=== PATIENT | female | born 1960 | race Caucasian/White ===

== ENCOUNTER 2017-12-06 08:17 | Day surgery (SDC) | payer OTHER ==
[~2017-12-06] VITALS: Ht 160 cm; Wt 124.0 kg
[~2017-12-06 08:17] MED LIST: ALBU90OI INH; AMOCLA875 PO; ASPI81EC PO; AZIT250 PO; Albuterol17 G1 INH; BIOTIN PLUS KE1 EACH PO; CARV6.25 PO; CEPH500 PO; CIPRO500 MG PO; CLON.5 PO; CLOP75 PO; CODGUAEL PO; CYCL10 PO; Cleocin HCl300 MG PO; Cyclobenzaprine5 MG PO; Cymbalta60 MG; DIAZ5 PO; DULO60 PO; Diflucan100 MG PO; Doxycycline Mon50 M1 PO; ESOM20 PO; Endocet 7.5-321 EACH PO; FLONASE ALLERG9.9 ML; FLUC150A PO; FLUC200 PO; FURO40 PO; GABA300 PO; GABA800 PO; GLIP5 PO; HYDACE5 PO; IBUP600 PO; INSR10I SC; INSUASPI SC; INSULANPEN SC; JARDIANCE25 MG; LISI20 PO; LORA10 PO; MERIBIN5 MG; MERIBIN5 MG PO; METO25ER PO; Mucinex600 MG PO; NICO14TP TOP; Naprosyn500 MG PO; Novolog100 UNIT/2; OMEP40CA12 PO; ONDA4ODT PO; OXYACE5T PO; OXYC10ER PO; OXYC1TAB11 PO; OXYMORPHONE HCL10 MG PO; PHENA100 PO; POTCHL10ER PO; PROM25 PO; Prednisone20 MG PO; Pseudoephedrine30 MG PO; Pyridium200 MG PO; ROSU10TA PO; SPACE CHAMBER1 EACH MC; SULTRIDS PO; Senna Laxative8.6 MG PO; Senna8.6 MG PO; Sulfamethoxazo1 EAC1 PO; TOPI25 PO; TOUJEO SOL300 UNIT/1 SQ; Tylenol325 MG PO; VANCO 2 GR2 GM/250 M IV; VITAMIN D2000 UNIT PO; VITAMIN D33000 UNIT PO; XARELTO15 MG PO; XARELTO20 MG PO; ZOLP5 PO; Zithromax250 MG PO; Zofran4 MG PO
[2017-12-06] MEDS ORDERED: PRED10 PO (09:00)
[2017-12-06] MEDS ORDERED: FAMO20 PO (09:01)
[2017-12-06] MEDS ORDERED: DIPH50 PO (09:02)
[2017-12-06] MEDS ORDERED: NAC600 MG PO (09:05)
[2017-12-06] MEDS ORDERED: METF500 PO (13:03)
== END 2017-12-06 14:30 | disposition home or self-care (01) ==
LOC: MHTC 08:17
PROC: 4A023N7 Measurement of Cardiac Sampling and Pressure, Left Heart, Percutaneous Approach (ICD-10-PCS; principal; 2017-12-06)
PROC: B211YZZ Fluoroscopy of Multiple Coronary Arteries using Other Contrast (ICD-10-PCS; principal; 2017-12-06)
PROC: 4A033BC Measurement of Arterial Pressure, Coronary, Percutaneous Approach (ICD-10-PCS; principal; 2017-12-06)
DX: I25.10 Atherosclerotic heart disease of native coronary artery without angina pectoris (principal); R94.39 Abnormal result of other cardiovascular function study; Z95.818 Presence of other cardiac implants and grafts; I10 Essential (primary) hypertension; E78.5 Hyperlipidemia, unspecified; E11.9 Type 2 diabetes mellitus without complications; Z87.891 Personal history of nicotine dependence
CPT/HCPCS: 82947; 93458; 93571; 99152; 99153; C1769; C1894; J1200; J1644; J1815; J2250; J3010; J3490; J7030; Q9967

== ENCOUNTER 2018-02-24 06:47 | Emergency (ER) | payer OTHER ==
[~2018-02-24] VITALS: Ht 160 cm; Wt 112.5 kg
[~2018-02-24 06:47] MED LIST changes: +DIPH50 PO; +FAMO20 PO; +METF500 PO; +NAC600 MG PO; +PRED10 PO
[2018-02-24] MEDS ORDERED: ZOSTRIX56.6 GM TOP (07:16)
[2018-02-24] MEDS ORDERED: Valtrex1000 MG PO (07:16)
== END 2018-02-24 07:35 | disposition home or self-care (01) ==
LOC: ER 06:47
DX: B02.9 Zoster without complications (principal); J45.909 Unspecified asthma, uncomplicated; E11.9 Type 2 diabetes mellitus without complications; I10 Essential (primary) hypertension; F32.9 Major depressive disorder, single episode, unspecified; I25.2 Old myocardial infarction; M54.9 Dorsalgia, unspecified; G89.29 Other chronic pain; Z95.5 Presence of coronary angioplasty implant and graft; Z98.890 Other specified postprocedural states; Z90.49 Acquired absence of other specified parts of digestive tract; Z90.710 Acquired absence of both cervix and uterus; Z87.891 Personal history of nicotine dependence

== ENCOUNTER 2018-03-05 13:08 | Emergency (ER) | payer OTHER ==
[~2018-03-05] VITALS: Ht 160 cm; Wt 113.4 kg
[~2018-03-05 13:08] MED LIST changes: +Valtrex1000 MG PO; +ZOSTRIX56.6 GM TOP
[2018-03-05] MEDS ORDERED: MUPIROCIN15 GM TOP (13:38)
== END 2018-03-05 13:51 | disposition home or self-care (01) ==
LOC: ER 13:08
DX: B02.9 Zoster without complications (principal); Z91.041 Radiographic dye allergy status; Z88.8 Allergy status to other drugs, medicaments and biological substances; Z91.018 Allergy to other foods; Z79.899 Other long term (current) drug therapy; Z79.4 Long term (current) use of insulin; Z79.52 Long term (current) use of systemic steroids; Z79.84 Long term (current) use of oral hypoglycemic drugs; E11.9 Type 2 diabetes mellitus without complications; I10 Essential (primary) hypertension; F32.9 Major depressive disorder, single episode, unspecified; I25.2 Old myocardial infarction; J45.909 Unspecified asthma, uncomplicated; F17.200 Nicotine dependence, unspecified, uncomplicated
CPT/HCPCS: 99282

== ENCOUNTER → 2018-05-09 | Outpatient (CLI) | payer OTHER ==
[~2018-05-09] MED LIST changes: +Abilify2 MG; +CEFD300 PO; +MUPIROCIN15 GM TOP; +Pyridium100 MG PO; +Ranitidine HCl150 M1 PO; +TRULICITY1.5 MG/0.5 SQ
== END | disposition home or self-care (01) ==
LOC: PLD 08:02 → LAB SHORT 08:02
DX: L30.8 Other specified dermatitis (principal)
CPT/HCPCS: 88305; 88313

== ENCOUNTER → 2018-05-15 | Outpatient (CLI) | payer OTHER ==
[2018-05-15 16:52] LABS: Appearance, Urine Hazy (Clear); Bilirubin, Urine Neg (Neg); Blood, Urine 4+ (Neg); Color, Urine Yellow (P-Yellow); Glucose Qualitative, Urine 4+ (Neg); Ketones, Urine Neg (Neg); Leukocyte Esterase, Urine 3+ (Neg); Nitrite, Urine Neg (Neg); Protein, Urine Neg (Neg); Urobilinogen, Urine NORM (Normal)
[2018-05-15 16:59] LABS: White Blood Cells, Urine TNTC /hpf (0-5)
[2018-05-15 17:01] LABS: Bacteria Few /hpf; Squamous Epithelial Cells Few /hpf (Few)
== END | disposition home or self-care (01) ==
LOC: LAB 16:22 → LAB SHORT 16:22
PROVIDERS: Internal Medicine Nephrology
DX: N39.0 Urinary tract infection, site not specified (principal)
CPT/HCPCS: 81001; 87077; 87086; 87186

== ENCOUNTER 2018-05-16 14:09 | Emergency (ER) | payer OTHER ==
[~2018-05-16] VITALS: Ht 160 cm; Wt 113.4 kg
[~2018-05-16 14:09] MED LIST changes: -Abilify2 MG; -CEFD300 PO; -Pyridium100 MG PO; -Ranitidine HCl150 M1 PO; -TRULICITY1.5 MG/0.5 SQ
[2018-05-16 14:58] LABS: Source, Urine Clean Catch
[2018-05-16 15:00] LABS: Appearance, Urine Hazy (Clear); Bilirubin, Urine Neg (Neg); Blood, Urine 4+ (Neg); Color, Urine Yellow (P-Yellow); Glucose Qualitative, Urine 4+ (Neg); Ketones, Urine Neg (Neg); Leukocyte Esterase, Urine 3+ (Neg); Nitrite, Urine Neg (Neg); Protein, Urine 1+ (Neg); Urobilinogen, Urine NORM (Normal)
[2018-05-16] MEDS ORDERED: TRULICITY1.5 MG/0.5 SQ (15:00)
[2018-05-16] MEDS ORDERED: Abilify2 MG (15:01)
[2018-05-16] MEDS ORDERED: Ranitidine HCl150 M1 PO (15:02)
[2018-05-16 15:39] LABS: White Blood Cells, Urine TNTC /hpf (0-5)
[2018-05-16 15:41] LABS: Bacteria Few /hpf; Red Blood Cells, Urine 25-50 /hpf (0-2); Squamous Epithelial Cells Few /hpf (Few)
[2018-05-16 15:50] LABS: BASOPHILS ABSOLUTE AUTO 0.08 K/mm3 (0.00-0.23); BASOPHILS PERCENT AUTO 1 % (0-2); EOSINOPHILS PERCENT AUTO 2 % (0-6); Hematocrit 41.7 % (33.0-51.0); IMMATURE GRAN ABSOLUTE AUTO 0.04 K/mm3 (0.00-0.10); IMMATURE GRAN PERCENT AUTO 1 % (0-1); LYMPHOCYTES ABSOLUTE AUTO 2.35 K/mm3 (0.84-5.20); LYMPHOCYTES PERCENT AUTO 28 % (21-46); MONOCYTES ABSOLUTE AUTO 0.58 K/mm3 (0.16-1.47); MONOCYTES PERCENT AUTO 7 % (4-13); Mean Corpuscular HGB 30.6 pg (26.0-34.0); Mean Corpuscular HGB Conc 33.6 g/dL (31.5-36.5); Mean Corpuscular Volume 91 fL (80-100); Mean Platelet Volume 10.4 fL (9.1-12.4); NEUTROPHILS ABSOLUTE AUTO 5.12 K/mm3 (1.96-9.15); NEUTROPHILS PERCENT AUTO 61 % (41-73); Platelet Count 310 K/mm3 (150-400); RDW Coefficient Variation 12.9 % (11.7-14.2); RDW Standard Deviation 42.6 fL (35.1-46.3); Red Blood Cell Count 4.58 M/mm3 (3.80-5.20); White Blood Cell Count 8.37 K/mm3 (4.00-11.30)
[2018-05-16 16:07] LABS: Anion Gap 10 mmol/L (6-16); Blood Urea Nitrogen 23 mg/dL (8-24); Bun/Creatinine Ratio 29.9 (12.0-20.0); CO2, Blood 24 mmol/L (21-32); Calcium, Blood 8.8 mg/dL (8.5-10.1); Chloride, Blood 103 mmol/L (98-108); Creatinine, Blood 0.77 mg/dL (0.40-1.00); Glomerular Filtration Rate >60 (60-); Glucose, Blood 152 mg/dL (70-99); Potassium, Blood 4.1 mmol/L (3.5-5.5); Sodium, Blood 137 mmol/L (136-145)
[2018-05-16] MEDS ORDERED: Pyridium100 MG PO (16:23)
[2018-05-16] MEDS ORDERED: CEFD300 PO (16:23)
== END 2018-05-16 16:52 | disposition home or self-care (01) ==
LOC: ER 14:09
PROVIDERS: Emergency Medicine
DX: N39.0 Urinary tract infection, site not specified (principal); E11.9 Type 2 diabetes mellitus without complications; I10 Essential (primary) hypertension; F32.9 Major depressive disorder, single episode, unspecified; J45.909 Unspecified asthma, uncomplicated; Z91.09 Other allergy status, other than to drugs and biological substances; Z91.041 Radiographic dye allergy status; Z91.048 Other nonmedicinal substance allergy status; Z88.1 Allergy status to other antibiotic agents; Z88.8 Allergy status to other drugs, medicaments and biological substances; Z91.018 Allergy to other foods; Z79.899 Other long term (current) drug therapy; Z79.4 Long term (current) use of insulin
CPT/HCPCS: 36415; 80048; 81001; 85025; 87077; 87086; 87186; 96374; 99283-25; J2405

== ENCOUNTER → 2018-06-26 | Outpatient (CLI) | payer OTHER ==
[~2018-06-26] MED LIST changes: +Abilify2 MG; +CEFD300 PO; +Pyridium100 MG PO; +Ranitidine HCl150 M1 PO; +TRULICITY1.5 MG/0.5 SQ
== END | disposition home or self-care (01) ==
LOC: LAB 16:17 → LAB SHORT 16:17
DX: L98.9 Disorder of the skin and subcutaneous tissue, unspecified (principal)
CPT/HCPCS: 87070; 87205

== ENCOUNTER 2019-03-02 19:16 | Emergency (ER) | payer OTHER ==
[~2019-03-02] VITALS: Ht 160 cm; Wt 115.7 kg
[2019-03-02 20:22] LABS: BASOPHILS ABSOLUTE AUTO 0.07 K/mm3 (0.00-0.23); BASOPHILS PERCENT AUTO 1 % (0-2); EOSINOPHILS ABSOLUTE AUTO 0.06 K/mm3 (0.00-0.68); EOSINOPHILS PERCENT AUTO 1 % (0-6); Hematocrit 46.6 % (33.0-51.0); Hemoglobin 15.5 g/dL (11.5-16.0); IMMATURE GRAN ABSOLUTE AUTO 0.03 K/mm3 (0.00-0.10); IMMATURE GRAN PERCENT AUTO 0 % (0-1); LYMPHOCYTES ABSOLUTE AUTO 1.51 K/mm3 (0.84-5.20); LYMPHOCYTES PERCENT AUTO 19 % (21-46); MONOCYTES PERCENT AUTO 6 % (4-13); Mean Corpuscular HGB 30.1 pg (26.0-34.0); Mean Corpuscular HGB Conc 33.3 g/dL (31.5-36.5); Mean Corpuscular Volume 91 fL (80-100); Mean Platelet Volume 10.6 fL (9.1-12.4); NEUTROPHILS ABSOLUTE AUTO 5.77 K/mm3 (1.96-9.15); NEUTROPHILS PERCENT AUTO 73 % (41-73); Platelet Count 339 K/mm3 (150-400); RDW Coefficient Variation 12.1 % (11.7-14.2); RDW Standard Deviation 40.3 fL (35.1-46.3); Red Blood Cell Count 5.15 M/mm3 (3.80-5.20); White Blood Cell Count 7.94 K/mm3 (4.00-11.30)
[2019-03-02 20:46] LABS: Alanine Aminotransfer (ALT/SGP 27 U/L (12-78); Albumin, Blood 3.8 g/dL (3.4-5.0); Albumin/Globulin Ratio 0.9 (0.8-1.8); Alk Phos 111 U/L (50-136); Anion Gap 8 mmol/L (6-16); Aspartate Aminotrans (AST/SGOT 17 U/L (12-37); Bilirubin, Total 0.6 mg/dL (0.1-1.0); Blood Urea Nitrogen 10 mg/dL (8-24); Bun/Creatinine Ratio 16.3 (12.0-20.0); CO2, Blood 25 mmol/L (21-32); Calcium, Blood 9.3 mg/dL (8.5-10.1); Chloride, Blood 106 mmol/L (98-108); Creatinine, Blood 0.61 mg/dL (0.40-1.00); Globulin, Blood 4.1 g/dL (2.2-4.0); Glomerular Filtration Rate >60 (60-); Glucose, Blood 192 mg/dL (70-99); Potassium, Blood 3.8 mmol/L (3.5-5.5); Sodium, Blood 139 mmol/L (136-145); Total Protein, Blood 7.9 g/dL (6.4-8.2)
[2019-03-02 20:48] LABS: Source, Urine Clean Catch
[2019-03-02 20:52] LABS: Bilirubin, Urine Neg (Neg); Blood, Urine Neg (Neg); Glucose Qualitative, Urine Neg (Neg); Ketones, Urine 1+ (Neg); Leukocyte Esterase, Urine 1+ (Neg); Nitrite, Urine Neg (Neg); Protein, Urine 2+ (Neg); Specific Gravity, Urine 1.025 (1.003-1.022); Urobilinogen, Urine NORM (Normal)
[2019-03-02 20:55] LABS: Appearance, Urine Clear (Clear); Color, Urine Yellow (P-Yellow)
[2019-03-02 20:58] LABS: Red Blood Cells, Urine 0-2 /hpf (0-2)
[2019-03-02 20:59] LABS: Bacteria Many /hpf; Mucus Mod (0-Heavy); Squamous Epithelial Cells Mod /hpf (Few)
[2019-03-02] MEDS ORDERED: Dicyclomine HCl20 MG PO (22:51)
[2019-03-02] MEDS ORDERED: ONDA4ODT MM (22:51)
== END 2019-03-02 23:20 | disposition home or self-care (01) ==
LOC: ER 19:16
PROVIDERS: Physician Assistant
DX: K52.9 Noninfective gastroenteritis and colitis, unspecified (principal); I10 Essential (primary) hypertension; E11.9 Type 2 diabetes mellitus without complications; I25.2 Old myocardial infarction; F32.9 Major depressive disorder, single episode, unspecified; J45.909 Unspecified asthma, uncomplicated; K21.9 Gastro-esophageal reflux disease without esophagitis; Z79.899 Other long term (current) drug therapy; Z79.4 Long term (current) use of insulin; Z91.041 Radiographic dye allergy status; Z88.1 Allergy status to other antibiotic agents; Z88.8 Allergy status to other drugs, medicaments and biological substances; Z91.018 Allergy to other foods
CPT/HCPCS: 36415; 80053; 81001; 82947; 83690; 85025; 87086; 96374; 99284-25; A9270-GY; J2405

== ENCOUNTER 2019-03-04 09:44 | Emergency (ER) | payer OTHER ==
[~2019-03-04] VITALS: Ht 160 cm; Wt 115.7 kg
[~2019-03-04 09:44] MED LIST changes: +Dicyclomine HCl20 MG PO; +ONDA4ODT MM
[2019-03-04 10:55] LABS: Source, Urine Clean Catch
[2019-03-04 11:04] LABS: Appearance, Urine Clear (Clear); Bilirubin, Urine Neg (Neg); Blood, Urine Neg (Neg); Color, Urine Yellow (P-Yellow); Glucose Qualitative, Urine Neg (Neg); Ketones, Urine 1+ (Neg); Leukocyte Esterase, Urine Neg (Neg); Nitrite, Urine Neg (Neg); Protein, Urine 1+ (Neg); Urobilinogen, Urine NORM (Normal)
[2019-03-04 11:39] LABS: Albumin, Blood 3.5 g/dL (3.4-5.0); Anion Gap 9 mmol/L (6-16); Blood Urea Nitrogen 11 mg/dL (8-24); CO2, Blood 22 mmol/L (21-32); Calcium, Blood 8.7 mg/dL (8.5-10.1); Chloride, Blood 106 mmol/L (98-108); Glucose, Blood 196 mg/dL (70-99); Potassium, Blood 4.1 mmol/L (3.5-5.5); Sodium, Blood 137 mmol/L (136-145)
[2019-03-04 11:50] LABS: Alanine Aminotransfer (ALT/SGP 28 U/L (12-78); Albumin/Globulin Ratio 0.9 (0.8-1.8); Alk Phos 98 U/L (50-136); Aspartate Aminotrans (AST/SGOT 31 U/L (12-37); Bilirubin, Total 0.5 mg/dL (0.1-1.0); Bun/Creatinine Ratio 14.8 (12.0-20.0); Creatinine, Blood 0.74 mg/dL (0.40-1.00); Globulin, Blood 3.8 g/dL (2.2-4.0); Glomerular Filtration Rate >60 (60-); Total Protein, Blood 7.3 g/dL (6.4-8.2)
[2019-03-04 12:20] LABS: BASOPHILS ABSOLUTE AUTO 0.08 K/mm3 (0.00-0.23); BASOPHILS PERCENT AUTO 1 % (0-2); EOSINOPHILS PERCENT AUTO 1 % (0-6); Hematocrit 43.4 % (33.0-51.0); Hemoglobin 14.1 g/dL (11.5-16.0); IMMATURE GRAN ABSOLUTE AUTO 0.03 K/mm3 (0.00-0.10); IMMATURE GRAN PERCENT AUTO 0 % (0-1); LYMPHOCYTES PERCENT AUTO 20 % (21-46); MONOCYTES ABSOLUTE AUTO 0.46 K/mm3 (0.16-1.47); MONOCYTES PERCENT AUTO 6 % (4-13); Mean Corpuscular HGB 29.9 pg (26.0-34.0); Mean Corpuscular HGB Conc 32.5 g/dL (31.5-36.5); Mean Corpuscular Volume 92 fL (80-100); Mean Platelet Volume 10.4 fL (9.1-12.4); NEUTROPHILS ABSOLUTE AUTO 5.44 K/mm3 (1.96-9.15); NEUTROPHILS PERCENT AUTO 72 % (41-73); Platelet Count 307 K/mm3 (150-400); RDW Standard Deviation 40.9 fL (35.1-46.3); Red Blood Cell Count 4.71 M/mm3 (3.80-5.20); White Blood Cell Count 7.61 K/mm3 (4.00-11.30)
[2019-03-04] MEDS ORDERED: METO10 PO (12:46)
== END 2019-03-04 13:05 | disposition home or self-care (01) ==
LOC: ER 09:44
PROVIDERS: Emergency Medicine
DX: K52.9 Noninfective gastroenteritis and colitis, unspecified (principal); E11.9 Type 2 diabetes mellitus without complications; Z91.041 Radiographic dye allergy status; Z88.8 Allergy status to other drugs, medicaments and biological substances; Z88.1 Allergy status to other antibiotic agents; Z91.018 Allergy to other foods; Z79.899 Other long term (current) drug therapy; Z79.4 Long term (current) use of insulin; J45.909 Unspecified asthma, uncomplicated; I10 Essential (primary) hypertension; I25.2 Old myocardial infarction; F32.9 Major depressive disorder, single episode, unspecified; K21.9 Gastro-esophageal reflux disease without esophagitis; F17.200 Nicotine dependence, unspecified, uncomplicated
CPT/HCPCS: 36415; 80053; 83690; 85025; 96361; 96374; 99284-25; J2765; J7030

== ENCOUNTER 2019-03-28 08:34 | Inpatient (IN) | payer OTHER ==
[~2019-03-28] VITALS: Ht 160 cm; Wt 111.2 kg
[~2019-03-28 08:34] MED LIST changes: -Abilify2 MG; +Abilify2 MG PO; +Carvedilol12.5 MG PO; +Crestor20 MG PO; +GABA600 PO; -JARDIANCE25 MG; +JARDIANCE25 MG PO; -LISI20 PO; -METF500 PO; +METF500C PO; +METO10 PO; -Novolog100 UNIT/2; +Novolog100 UNIT/2 SC; +Prinivil10 MG PO
[2019-03-28 09:23] LABS: BASOPHILS ABSOLUTE AUTO 0.08 K/mm3 (0.00-0.23); BASOPHILS PERCENT AUTO 0 % (0-2); EOSINOPHILS ABSOLUTE AUTO 0.09 K/mm3 (0.00-0.68); EOSINOPHILS PERCENT AUTO 0 % (0-6); Hematocrit 52.3 % (33.0-51.0); Hemoglobin 16.4 g/dL (11.5-16.0); IMMATURE GRAN ABSOLUTE AUTO 0.11 K/mm3 (0.00-0.10); IMMATURE GRAN PERCENT AUTO 1 % (0-1); LYMPHOCYTES ABSOLUTE AUTO 0.82 K/mm3 (0.84-5.20); LYMPHOCYTES PERCENT AUTO 4 % (21-46); MONOCYTES ABSOLUTE AUTO 1.14 K/mm3 (0.16-1.47); MONOCYTES PERCENT AUTO 5 % (4-13); Mean Corpuscular HGB 29.2 pg (26.0-34.0); Mean Corpuscular HGB Conc 31.4 g/dL (31.5-36.5); Mean Corpuscular Volume 93 fL (80-100); Mean Platelet Volume 10.9 fL (9.1-12.4); NEUTROPHILS ABSOLUTE AUTO 19.52 K/mm3 (1.96-9.15); NEUTROPHILS PERCENT AUTO 90 % (41-73); Platelet Count 334 K/mm3 (150-400); RDW Coefficient Variation 12.6 % (11.7-14.2); RDW Standard Deviation 43.2 fL (35.1-46.3); Red Blood Cell Count 5.61 M/mm3 (3.80-5.20); White Blood Cell Count 21.76 K/mm3 (4.00-11.30)
[2019-03-28 09:50] LABS: Alanine Aminotransfer (ALT/SGP 37 U/L (12-78); Albumin, Blood 3.8 g/dL (3.4-5.0); Albumin/Globulin Ratio 0.9 (0.8-1.8); Alk Phos 127 U/L (50-136); Anion Gap 8 mmol/L (6-16); Aspartate Aminotrans (AST/SGOT 30 U/L (12-37); Bilirubin, Total 0.3 mg/dL (0.1-1.0); Blood Urea Nitrogen 12 mg/dL (8-24); CO2, Blood 25 mmol/L (21-32); Calcium, Blood 9.3 mg/dL (8.5-10.1); Chloride, Blood 107 mmol/L (98-108); Globulin, Blood 4.1 g/dL (2.2-4.0); Glomerular Filtration Rate >60 (60-); Glucose, Blood 211 mg/dL (70-99); Potassium, Blood 4.4 mmol/L (3.5-5.5); Sodium, Blood 140 mmol/L (136-145); Total Protein, Blood 7.9 g/dL (6.4-8.2)
[2019-03-28 09:51] LABS: Troponin I 0.108 ng/mL (0.000-0.040)
[2019-03-28] MEDS ORDERED: Senna8.6 MG PO (12:14)
[2019-03-28] MEDS ORDERED: METTREX2.5 PO (12:19)
[2019-03-28] MEDS ORDERED: FOLI1 PO (12:20)
[2019-03-28] MEDS ORDERED: MORP30 PO (12:54)
[2019-03-28 14:04] LABS: Prothrombin Time Results 10.6 Sec (9.7-11.5)
--- NOTE | 2019-03-28 18:00 | NUR ---
SHIFT SUMMARY ASSUMED CARE OF PT AT APPROXIMATLY 1600. VS STABLE. TELEMETRY SHOWS NSR WITH A RATE IN THE 80'S. PT COMPLAINS OF PAIN IN CHEST AND BACK. PT MEDICATED PER EMAR. HEPARIN GTT INFUSING PER ORDERS. NS INFUSING PER ORDERS. PT TO BE NPO AT MIDNIGHT FOR POSSIBLE ANGIOGRAM IN THE AM PER CARDIOLOGY. PT ABLE TO TRANSFER TO [facility] NEEDED TO VOID. WOUNDS TO ABDOMEN HAVE BEEN PHOTOGRAPHED. PT REPORTS THAT SHE IS SEEING DR. MEEK FOR TREATMENT OF WOUNDS. WILL CONTINUE TO MONITOR AND REPORT TO ONCOMING RN. CALL LIGHT IN REACH.
--- NOTE | 2019-03-28 21:10 | NUR ---
ASSUMED CARE OF PATIENT AT APPROXIMATELY 1900 FROM MEENAKSHI Mcgowan RN. PATIENT ALERT AND ORIENTED X4; SBA TO BEDSIDE COMMODE. PATIENT HAS WEAKNESS, BLE EDEMA AND DYSPNEA WITH AMBULATION. PATIENT REPORTS PAIN IN HER RIGHT SHOULDER THAT SHE STATES FROM TORN ROTATOR CUFF, PAIN IN RIGHT KNEE AND PAIN IN BACK; PAIN LEVEL A 3 OR LESS IN EACH AREA; DENIES PAIN MEDICATION; WILL TRY K-PAD. PATIENT DENIES NUMBNESS, TINGLING, DIZZINESS AND NAUSEA. NSR W/ BBB ON TELE; OXYGEN SATURATION ABOVE 90% ON 2-3LPM VIA NC (REPORTED BASELINE FOR PATIENT). PATIENT ANXIOUS AT TIMES; REQUESTS XANAX LATER TONIGHT; PATIENT EXPRESSED CONCERN ABOUT WAKING UP ANXIOUS AT 2AM THAT SHE REPORTS HAS BEEN OCCURING FOR THE PAST FEW NIGHTS. SCDS IN PLACE; PIV S/L. PATIENT CURRENTLY RESTING IN BED; CALL LIGHT IN REACH; BED IN LOWEST POSISTION; BED ALARM ON; WILL CONTINUE TO MONITOR AND ASSESS UNTIL END OF SHIFT.
--- NOTE | 2019-03-28 21:15 | NUR ---
ASSUMED CARE OF PATIENT AT APPROXIMATELY 1905 FROM MEENAKSHI Mcgowan RN. PATIENT DROWSY AT SHIFT CHANGE; WAKES TO VERBAL STIMULUS; EASILY FALLS BACK ASLEEP. PATIENT MOANS AND STATES 5/10 PAIN IN HER BACK AND ABDOMEN; SHE REPORTS BACK PAIN FOR YEARS NOW BUT THE ABDOMEN PAIN IS NEW (SHARP AND STABBING); PATIENT REFUSES TYLENOL; REPORTS "I WILL FOR THE MORPHINE"; "I'M FINE FOR NOW"; REFUES ICE PACK, K-PAD OR WARM BLANKETS. PATIENT DENIES CP/PRESSURE, DIZZINESS OR NAUSEA. CHRONIC N/T TO EXTREMITIES. HEPARIN AND NS INFUSING PER ORDER. NPO AT MIDNIGHT. PATIENT CURRENTLY RESTING IN BED; CALL LIGHT IN REACH; BED IN LOWEST POSISTION; BED ALARM ON; WILL CONTINUE TO MONITOR AND ASSESS UNTIL END OF SHIFT.
[2019-03-29 06:28] LABS: BASOPHILS ABSOLUTE AUTO 0.04 K/mm3 (0.00-0.23); BASOPHILS PERCENT AUTO 0 % (0-2); EOSINOPHILS ABSOLUTE AUTO 0.14 K/mm3 (0.00-0.68); EOSINOPHILS PERCENT AUTO 2 % (0-6); Hematocrit 42.1 % (33.0-51.0); Hemoglobin 13.5 g/dL (11.5-16.0); IMMATURE GRAN ABSOLUTE AUTO 0.02 K/mm3 (0.00-0.10); IMMATURE GRAN PERCENT AUTO 0 % (0-1); LYMPHOCYTES ABSOLUTE AUTO 2.34 K/mm3 (0.84-5.20); LYMPHOCYTES PERCENT AUTO 26 % (21-46); MONOCYTES ABSOLUTE AUTO 0.57 K/mm3 (0.16-1.47); MONOCYTES PERCENT AUTO 6 % (4-13); Mean Corpuscular HGB 29.1 pg (26.0-34.0); Mean Corpuscular HGB Conc 32.1 g/dL (31.5-36.5); Mean Corpuscular Volume 91 fL (80-100); Mean Platelet Volume 10.9 fL (9.1-12.4); NEUTROPHILS ABSOLUTE AUTO 6.06 K/mm3 (1.96-9.15); NEUTROPHILS PERCENT AUTO 66 % (41-73); Platelet Count 308 K/mm3 (150-400); RDW Coefficient Variation 12.7 % (11.7-14.2); RDW Standard Deviation 41.5 fL (35.1-46.3); Red Blood Cell Count 4.64 M/mm3 (3.80-5.20); White Blood Cell Count 9.17 K/mm3 (4.00-11.30)
[2019-03-29 06:58] LABS: Alanine Aminotransfer (ALT/SGP 28 U/L (12-78); Albumin, Blood 2.8 g/dL (3.4-5.0); Albumin/Globulin Ratio 0.8 (0.8-1.8); Alk Phos 81 U/L (50-136); Anion Gap 5 mmol/L (6-16); Aspartate Aminotrans (AST/SGOT 45 U/L (12-37); Bilirubin, Total 0.3 mg/dL (0.1-1.0); Blood Urea Nitrogen 9 mg/dL (8-24); Bun/Creatinine Ratio 13.1 (12.0-20.0); CO2, Blood 27 mmol/L (21-32); Calcium, Blood 8.2 mg/dL (8.5-10.1); Chloride, Blood 110 mmol/L (98-108); Creatinine, Blood 0.69 mg/dL (0.40-1.00); Globulin, Blood 3.4 g/dL (2.2-4.0); Glomerular Filtration Rate >60 (60-); Glucose, Blood 96 mg/dL (70-99); Magnesium, Blood 2.1 mg/dL (1.6-2.4); Sodium, Blood 142 mmol/L (136-145); Total Protein, Blood 6.2 g/dL (6.4-8.2)
[2019-03-29 13:56] LABS: Source, Urine Voided
--- NOTE | 2019-03-29 14:01 | NUR ---
PT TAKEN TO [facility] FOR [facility]EDURE.
[2019-03-29 14:19] LABS: Bilirubin, Urine Neg (Neg); Blood, Urine Neg (Neg); Glucose Qualitative, Urine Neg (Neg); Ketones, Urine Neg (Neg); Leukocyte Esterase, Urine Neg (Neg); Nitrite, Urine Neg (Neg); Protein, Urine Neg (Neg); Urobilinogen, Urine NORM (Normal)
[2019-03-29 14:27] LABS: Appearance, Urine Clear (Clear); Color, Urine Yellow (P-Yellow)
--- NOTE | 2019-03-29 15:53 | NUR ---
PT RETURNED FROM [facility]. VS STABLE. TR BAND IN PLACE WITH 11CC OF AIR. NO SIGNS OF BLEEDING, HEMATOMA FORMATION, OR BRUISING. PT DENIES ANY CHEST PAIN. PT EDUCATED ON ARM RESTRICITONS. WILL CONTINUE TO MONITOR CLOSELY.
--- NOTE | 2019-03-29 19:00 | NUR ---
DAY SHIFT SUMMARY PT ALERT AND ORIENTED. VS STABLE. O2 SATS REMAIN ABOVE 90% ON RA. RIGHT RADIAL SITE HAS TR BAND IN PLACE. 2CC OF AIR REMOVED AT THIS TIME. NO SIGNS OF BLEEDING, HEMATOMA FORMATION, OR BRUISING. PT DENIES ANY CHEST PAIN THIS SHIFT. PT TOLERATING PO INTAKE AT THIS TIME. PT COMPLAINS OF CHRONIC BACK PAIN THROUGHOUT SHIFT. PT ABLE TO TRANSFER TO BS NEEDED TO VOID. WILL CONTINUE TO MONITOR. CALL LIGHT IN REACH.
--- NOTE | 2019-03-30 00:15 | NUR ---
RECEIVED REPORT FROM MEENAKSHI PRASAD AND ASSUMED PT CARE. PT IS RESTING IN BED WITH EYES CLOSED, APPEARS RELAXED AND COMFORTABLE. NO ACUTE CONCERNS, WILL CONTINUE TO MONITOR AND CONTINUE PLAN OF CARE.
[2019-03-30 04:00] LABS: BASOPHILS ABSOLUTE AUTO 0.05 K/mm3 (0.00-0.23); BASOPHILS PERCENT AUTO 1 % (0-2); EOSINOPHILS ABSOLUTE AUTO 0.13 K/mm3 (0.00-0.68); EOSINOPHILS PERCENT AUTO 1 % (0-6); Hematocrit 39.5 % (33.0-51.0); Hemoglobin 12.3 g/dL (11.5-16.0); IMMATURE GRAN ABSOLUTE AUTO 0.04 K/mm3 (0.00-0.10); IMMATURE GRAN PERCENT AUTO 0 % (0-1); LYMPHOCYTES ABSOLUTE AUTO 3.49 K/mm3 (0.84-5.20); LYMPHOCYTES PERCENT AUTO 32 % (21-46); MONOCYTES ABSOLUTE AUTO 0.82 K/mm3 (0.16-1.47); MONOCYTES PERCENT AUTO 8 % (4-13); Mean Corpuscular HGB 28.6 pg (26.0-34.0); Mean Corpuscular HGB Conc 31.1 g/dL (31.5-36.5); Mean Corpuscular Volume 92 fL (80-100); Mean Platelet Volume 10.7 fL (9.1-12.4); NEUTROPHILS ABSOLUTE AUTO 6.44 K/mm3 (1.96-9.15); NEUTROPHILS PERCENT AUTO 59 % (41-73); Platelet Count 292 K/mm3 (150-400); RDW Coefficient Variation 12.7 % (11.7-14.2); RDW Standard Deviation 42.3 fL (35.1-46.3); White Blood Cell Count 10.97 K/mm3 (4.00-11.30)
[2019-03-30 04:36] LABS: Alanine Aminotransfer (ALT/SGP 25 U/L (12-78); Albumin, Blood 2.6 g/dL (3.4-5.0); Albumin/Globulin Ratio 0.8 (0.8-1.8); Alk Phos 83 U/L (50-136); Anion Gap 5 mmol/L (6-16); Aspartate Aminotrans (AST/SGOT 30 U/L (12-37); Bilirubin, Total 0.3 mg/dL (0.1-1.0); Blood Urea Nitrogen 12 mg/dL (8-24); Bun/Creatinine Ratio 16.6 (12.0-20.0); CO2, Blood 26 mmol/L (21-32); Calcium, Blood 8.2 mg/dL (8.5-10.1); Chloride, Blood 111 mmol/L (98-108); Creatinine, Blood 0.73 mg/dL (0.40-1.00); Globulin, Blood 3.3 g/dL (2.2-4.0); Glomerular Filtration Rate >60 (60-); Glucose, Blood 153 mg/dL (70-99); Potassium, Blood 3.7 mmol/L (3.5-5.5); Sodium, Blood 142 mmol/L (136-145); Total Protein, Blood 5.9 g/dL (6.4-8.2)
--- NOTE | 2019-03-30 07:45 | NUR ---
PT HAS COMPLAINED OF CHRONIC BACK PAIN DURING SHIFT, SEE EMAR FOR MED ADMINISTRATION. PT STATES "THE PAIN MEDICINE HELPS FOR A LITTLE WHILE BUT THEN MY PAIN GOES BACK UP TO AN 8". DISCUSSED DURING BEDSIDE REPORT WITH SILVIA RN THAT THE PLAN FOR TODAY IS EXPECTED TO BE DISCHARGE WHERE SHE CAN RESUME HER HOME MEDICATIONS. HOWEVER, SHOULD THE MD DETERMINE TO DELAY DISCHARGE, THE QUESTION OF RESTARTING HOME PAIN MEDS WOULD BE READDRESSED WITH THE MD TODAY. PT IS FREQUENTLY RESTING WITH EYES CLOSED AND IN NO OBVIOUS DISTRESS UNTIL AWAKENED FOR VITAL SIGNS OR MEDICATION ADMINISTRATION. TR SITE TO R WRIST IS STABLE, TEGADERM IN PLACE WITH NO SIGN OF BLLEDING OR HEMATOMA. ARMBOARD IN PLACE AND PT HAS BEEN COMPLIANT WITH ACTIVITY RESTRICTIONS. PLAN FOR CONTINUED MONITORING WITH POSSIBLE DISCHARGE HOME TODAY.
--- NOTE | 2019-03-30 08:09 | NUR ---
NURSING PCU DAYSHIFT: Assumed care of pt at approx 0700. A/O, pleasant, cooperative w/care. C/O 05/11 chronic back pain, treating w/meds as ordered and repositioning. Skin is fairly intact though b/l abd wounds noted (photos in chart), R radial site r/t angiogram, clear tegaderm in place, no bleed or hematoma noted. C/O chronic neuropathy of all ext's, ambulates independently and w/o difficulty. Tele in place, NSR, no c/o CP/pressure, SBP 130's prior to a.m. meds, no noted edema. L/S failry cta t/o, O2 sat upper 90's on RA, denies dyspnea, occ moist/productive cough. Abd SNT, BT+, voiding w/o difficulty. PIV x2, s/l. No s/s of acute distress at this time. Pt requests home pain med regimen and is anticipating possible discharge home. Awaiting rounding from PMD and roll slicing machine tender, will discuss poss need for daily antiplatelet medication. Pt denies any current needs or questions regarding plan of care, call light in reach, cont to monitor for any changes.
[2019-03-30] MEDS ORDERED: INSULANPEN SC (11:53)
[2019-03-30] MEDS ORDERED: Lipitor80 MG PO (11:54)
[2019-03-30] MEDS ORDERED: ASPI81CH PO (11:55)
[2019-03-30] MEDS ORDERED: CARV3.125 PO (11:56)
[2019-03-30] MEDS ORDERED: TOUJEO MAX300 UNIT/1 SC (12:29)
[2019-03-30] MEDS ORDERED: TOPI50 PO (12:31)
== END 2019-03-30 13:02 | disposition home or self-care (01) | DRG 248 ==
LOC: ER 08:34 → ERHOLD 12:44 → PCU 12:44
PROVIDERS: Emergency Medicine; ADMIT Internal Medicine
PROC: 02703DZ Dilation of Coronary Artery, One Artery with Intraluminal Device, Percutaneous Approach (ICD-10-PCS; principal; 2019-03-29)
PROC: B2111ZZ Fluoroscopy of Multiple Coronary Arteries using Low Osmolar Contrast (ICD-10-PCS; 2019-03-29)
DX: T82.855A Stenosis of coronary artery stent, initial encounter (principal); I21.4 Non-ST elevation (NSTEMI) myocardial infarction; K85.90 Acute pancreatitis without necrosis or infection, unspecified; Z68.42 Body mass index [BMI] 45.0-49.9, adult; I25.10 Atherosclerotic heart disease of native coronary artery without angina pectoris; Z95.5 Presence of coronary angioplasty implant and graft; E78.5 Hyperlipidemia, unspecified; K21.9 Gastro-esophageal reflux disease without esophagitis; G89.29 Other chronic pain; M54.9 Dorsalgia, unspecified; E66.01 Morbid (severe) obesity due to excess calories; Z79.84 Long term (current) use of oral hypoglycemic drugs; D72.829 Elevated white blood cell count, unspecified; F17.210 Nicotine dependence, cigarettes, uncomplicated
CPT/HCPCS: 36415; 71045; 80053; 81003; 82947; 83036; 83690; 83735; 83880; 84484; 85025; 85347; 85610; 85730; 87077; 87081; 92928; 92978; 93005; 93010; 93306; 93454; 96361; 96374; 96375; 96376; 99152; 99153; 99285-25; A9270; C1725; C1753; C1769; C1876; C1887; C1894; J1170; J1200; J1644; J1720; J2250; J2270; J2405; J3010; J3490; J7030; Q9967

== ENCOUNTER → 2019-04-10 | Outpatient (CLI) | payer OTHER ==
[~2019-04-10] MED LIST changes: +ASPI81CH PO; +CARV3.125 PO; +FOLI1 PO; +Lipitor80 MG PO; +METTREX2.5 PO; +MORP30 PO; +TOPI50 PO; +TOUJEO MAX300 UNIT/1 SC; +Veetids 500500 MG PO
== END | disposition home or self-care (01) ==
LOC: LAB SHORT 14:24 → LAB 14:24
DX: R35.0 Frequency of micturition (principal)
CPT/HCPCS: 87077; 87086; 87186

== ENCOUNTER 2019-07-03 10:03 | Emergency (ER) | payer OTHER ==
[~2019-07-03] VITALS: Ht 160 cm; Wt 239.0 kg
[~2019-07-03 10:03] MED LIST changes: -Veetids 500500 MG PO
[2019-07-03] MEDS ORDERED: ONDA4ODT MM (11:32)
[2019-07-03] MEDS ORDERED: Veetids 500500 MG PO (11:32)
[2019-07-03] MEDS ORDERED: FLUC150A PO (11:39)
== END 2019-07-03 11:44 | disposition home or self-care (01) ==
LOC: ER 10:03
DX: J02.9 Acute pharyngitis, unspecified (principal); Z91.041 Radiographic dye allergy status; Z88.8 Allergy status to other drugs, medicaments and biological substances; Z88.1 Allergy status to other antibiotic agents; Z91.018 Allergy to other foods; Z79.899 Other long term (current) drug therapy; Z79.4 Long term (current) use of insulin; Z79.82 Long term (current) use of aspirin; E11.9 Type 2 diabetes mellitus without complications; I10 Essential (primary) hypertension; I25.2 Old myocardial infarction; F32.9 Major depressive disorder, single episode, unspecified; K21.9 Gastro-esophageal reflux disease without esophagitis; F17.200 Nicotine dependence, unspecified, uncomplicated
CPT/HCPCS: 87081; 87147; 87430; 99284; J1100

== ENCOUNTER 2020-03-24 17:04 | Emergency (ER) | payer OTHER ==
[~2020-03-24] VITALS: Ht 160 cm; Wt 108.4 kg
[~2020-03-24 17:04] MED LIST changes: +BLOOD THINNER; +CYMBALTA; +Veetids 500500 MG PO
== END 2020-03-24 18:56 | disposition home or self-care (01) ==
LOC: ER 17:04
DX: S91.331A Puncture wound without foreign body, right foot, initial encounter (principal); Z88.1 Allergy status to other antibiotic agents; Z91.018 Allergy to other foods; Z88.8 Allergy status to other drugs, medicaments and biological substances; Z91.048 Other nonmedicinal substance allergy status; Z91.09 Other allergy status, other than to drugs and biological substances; Z79.899 Other long term (current) drug therapy; Z79.4 Long term (current) use of insulin; Z79.82 Long term (current) use of aspirin; Z79.2 Long term (current) use of antibiotics; E11.40 Type 2 diabetes mellitus with diabetic neuropathy, unspecified; K21.9 Gastro-esophageal reflux disease without esophagitis; I25.10 Atherosclerotic heart disease of native coronary artery without angina pectoris; E78.5 Hyperlipidemia, unspecified; F17.200 Nicotine dependence, unspecified, uncomplicated; X58.XXXA Exposure to other specified factors, initial encounter
CPT/HCPCS: 10120; 73630; 99283-25

== ENCOUNTER 2020-05-05 18:35 | Inpatient (IN) | payer OTHER ==
[~2020-05-05] VITALS: Ht 157.5 cm; Wt 107.8 kg
[~2020-05-05 18:35] MED LIST changes: +ALLO100 PO; +AMLODIPINE BES2.5 MG PO; -ASPI81CH PO; +ATOR80 PO; +Aspir 8181 MG PO; -CARV3.125 PO; +CARVEDILOL12.5 MG PO; -CYMBALTA; +Cymbalta30 MG PO; +DOXYCYCLINE HY100 M1 PO; +FURO20 PO; +HYDHCL25 PO; +LINZESS145 MCG PO; +LISI20 PO; -Lipitor80 MG PO; +Loratadine10 MG PO; +MORPHINE SULFAT15 M1 PO; +NOVOLOG100 UNIT/2 SC; +OXYB5 PO; +PANT20 PO; +POTA10T PO; +PRASUGREL HCL10 MG PO; -TOUJEO MAX300 UNIT/1 SC; +TOUJEO MAX300 UNIT/2 SC; +TRAZ50 PO; +TRULICITY1.5 MG/0.1 SC; -TRULICITY1.5 MG/0.5 SQ
[2020-05-05 19:20] LABS: PCO2 Arterial 43.9 mmHg (35-45); PO2 Arterial 54.8 mmHg (80-100); pH Blood Arterial 7.23 (7.35-7.45)
[2020-05-05 19:26] LABS: Source, Urine Clean Catch
[2020-05-05 19:28] LABS: BASOPHILS ABSOLUTE AUTO 0.07 K/mm3 (0.00-0.23); BASOPHILS PERCENT AUTO 1 % (0-2); EOSINOPHILS ABSOLUTE AUTO 0.28 K/mm3 (0.00-0.68); EOSINOPHILS PERCENT AUTO 3 % (0-6); Hematocrit 40.3 % (33.0-51.0); Hemoglobin 12.4 g/dL (11.5-16.0); IMMATURE GRAN ABSOLUTE AUTO 0.02 K/mm3 (0.00-0.10); IMMATURE GRAN PERCENT AUTO 0 % (0-1); LYMPHOCYTES ABSOLUTE AUTO 1.67 K/mm3 (0.84-5.20); LYMPHOCYTES PERCENT AUTO 20 % (21-46); MONOCYTES ABSOLUTE AUTO 0.67 K/mm3 (0.16-1.47); MONOCYTES PERCENT AUTO 8 % (4-13); Mean Corpuscular HGB 27.9 pg (26.0-34.0); Mean Corpuscular HGB Conc 30.8 g/dL (31.5-36.5); Mean Corpuscular Volume 91 fL (80-100); Mean Platelet Volume 11.6 fL (9.1-12.4); NEUTROPHILS ABSOLUTE AUTO 5.79 K/mm3 (1.96-9.15); NEUTROPHILS PERCENT AUTO 68 % (41-73); Platelet Count 334 K/mm3 (150-400); RDW Coefficient Variation 13.2 % (11.7-14.2); RDW Standard Deviation 43.7 fL (35.1-46.3); Red Blood Cell Count 4.45 M/mm3 (3.80-5.20)
[2020-05-05 19:32] LABS: Blood, Urine 1+ (Neg); Glucose Qualitative, Urine Neg (Neg); Ketones, Urine 1+ (Neg); Leukocyte Esterase, Urine 1+ (Neg); Nitrite, Urine Neg (Neg); Protein, Urine 1+ (Neg); Urobilinogen, Urine NORM (Normal)
[2020-05-05 19:42] LABS: Albumin/Globulin Ratio 0.8 (0.8-1.8); Bilirubin, Total 0.5 mg/dL (0.1-1.0); Bun/Creatinine Ratio 12.7 (12.0-20.0); Calcium, Blood 8.3 mg/dL (8.5-10.1); Creatinine, Blood 4.58 mg/dL (0.40-1.00); Globulin, Blood 3.8 g/dL (2.2-4.0); Potassium, Blood 5.4 mmol/L (3.5-5.5); Total Protein, Blood 6.8 g/dL (6.4-8.2)
[2020-05-05 19:46] LABS: U Amphetamine Screen Not Detected; U Barbituate Screen Not Detected; U Benzodiazapine Screen Not Detected; U Buprenorphine Screen Not Detected; U Cannabinoids Screen Not Detected; U Cocaine Screen Not Detected; U Methadone Screen Not Detected; U Methamphetamine Screen Not Detected; U Opiates Screen DETECTED; U Oxycodone Screen Not Detected; U Phencyclidine Screen Not Detected; U Propoxyphene Screen Not Detected
[2020-05-05 19:51] LABS: Appearance, Urine Clear (Clear); Bilirubin, Urine 1+ (Neg); Color, Urine Yellow (P-Yellow)
[2020-05-05 19:55] LABS: Amorphous Light (0-Heavy); Bacteria Mod /hpf; Calcium Oxalate Crystals Few /hpf; Red Blood Cells, Urine 0-2 /hpf (0-2); Squamous Epithelial Cells Few /hpf (Few); Transitional Epithelial Cells Few /hpf (0-Rare)
--- NOTE | 2020-05-06 00:35 | NUR ---
ARRIVAL PATIENT ARRIVED TO ICU 1 VIA GURNEY FROM ED, AWAKENS TO VERBAL STIMULI, ANSWERING SIMPLE QUESTIONS FALLING BACK TO SLEEP MID SENTENCE. PATIENT TRANSFERRED TO BED USING SLIDER SHEET AND PLACED ON ICU MONITORS, PATIENT ASSISTING WITH REPOSITIONS IN BED, STARTLES EASILY. MAURICIO-SYNEPHRINE 100 MCG/MIN INFUSING TO LEFT AC. AND NS AT 250/HR INFUSING TO RIGHT SHOULDER. LUNG SOUNDS DECREASED BASES, ON 2L/NC. PLAN TO TITRATE MAURICIO-SYNEPHRINE DOWN. RT NOTIFIED OF CPAP ORDER.
[2020-05-06 03:52] LABS: BASOPHILS ABSOLUTE AUTO 0.05 K/mm3 (0.00-0.23); BASOPHILS PERCENT AUTO 1 % (0-2); EOSINOPHILS ABSOLUTE AUTO 0.17 K/mm3 (0.00-0.68); EOSINOPHILS PERCENT AUTO 3 % (0-6); Hematocrit 38.5 % (33.0-51.0); Hemoglobin 11.4 g/dL (11.5-16.0); IMMATURE GRAN ABSOLUTE AUTO 0.01 K/mm3 (0.00-0.10); IMMATURE GRAN PERCENT AUTO 0 % (0-1); LYMPHOCYTES ABSOLUTE AUTO 2.03 K/mm3 (0.84-5.20); LYMPHOCYTES PERCENT AUTO 33 % (21-46); MONOCYTES ABSOLUTE AUTO 0.57 K/mm3 (0.16-1.47); MONOCYTES PERCENT AUTO 9 % (4-13); Mean Corpuscular HGB 27.5 pg (26.0-34.0); Mean Corpuscular HGB Conc 29.6 g/dL (31.5-36.5); Mean Corpuscular Volume 93 fL (80-100); Mean Platelet Volume 11.4 fL (9.1-12.4); NEUTROPHILS PERCENT AUTO 55 % (41-73); Platelet Count 316 K/mm3 (150-400); RDW Coefficient Variation 13.2 % (11.7-14.2); RDW Standard Deviation 44.9 fL (35.1-46.3); Red Blood Cell Count 4.14 M/mm3 (3.80-5.20); White Blood Cell Count 6.23 K/mm3 (4.00-11.30)
[2020-05-06 04:15] LABS: Albumin, Blood 2.6 g/dL (3.4-5.0); Anion Gap 3 mmol/L (6-16); Blood Urea Nitrogen 51 mg/dL (8-24); Bun/Creatinine Ratio 15.5 (12.0-20.0); CO2, Blood 23 mmol/L (21-32); Calcium, Blood 7.3 mg/dL (8.5-10.1); Chloride, Blood 116 mmol/L (98-108); Creatinine, Blood 3.29 mg/dL (0.40-1.00); Glomerular Filtration Rate 15 (60-); Glucose, Blood 81 mg/dL (70-99); Phosphorus, Blood 6.2 mg/dL (2.5-4.9); Potassium, Blood 5.5 mmol/L (3.5-5.5); Sodium, Blood 142 mmol/L (136-145)
--- NOTE | 2020-05-06 04:28 | NUR ---
DOCTOR DARA NOTIFIED OF CONTINUED HYPOTENSION AND UNABLE TO DC MAURICIO-SYNEPHRINE, AND HAVING NEED FOR LINE IF CONTINUING TO NEED PRESSORS. PLAN TO CHANGE TO LEVOPHED AND PLACEMENT OF CENTRAL LINE.
--- NOTE | 2020-05-06 05:30 | NUR ---
DOCTOR DARA IN TO SEE PATIENT AND PLACE CENTRAL LINE. NARCAN 0.2MG GIVEN, PATIENT BECAME VERY PAINFUL AND UNABLE TO STAY STILL FOR CENTRAL LINE PLACEMENT. FENTANYL 50MCG GIVEN X2 TO GET PAIN BACK IN CONTROL. HYPOTENSION RETURNS, CHANGED TO LEVOPHED FROM MAURICIO-SYNEPHRINE FOR BP SUPPORT. CENTRAL LINE IN GOOD POSITION PER DOCTOR DIAMOND. PATIENT SLIGHTLY FORGETFUL, SURPRISED THAT SHE WAS IN THE HOSPITAL, REORIENTATION EASILY. PATIENT AWAKE AND ATTEMPTING TO CALL HER MOM ON THE TELEPHONE.
--- NOTE | 2020-05-06 06:41 | NUR ---
SUMMARY PATIENT RESTING QUIETLY VERBALIZED GOOD PAIN CONTROL. BIOX DOWN TO 89% ON RA WHILE SLEEPING OXYGEN 2L/NC REPLACED. CENTRAL LINE PLACED THIS MORNING, LEVOPHED INFUSING AT 2MCG. NS CONTINUES AT 200 CC/HR. COURTNEY DRAINING CLEAR YELLOW URINE.
--- NOTE | 2020-05-06 07:38 | NUR ---
[place] of Care: Care assumed at 0700hr. Patient sleeping, but easily roused to verbal stimuli. Alert and oriented to self, place, and date, but confused to event that lead to hospital stay. Also appears slightly confused i.e. stated her full name several times when asked her date. Calm and cooperative with staff. C/o pain (chronic) to back and knee's, but well controlled at this time, not requiring intervention or prn pain medications. Central line to rt IJ patent and intact. Levophed infusing at 2mcg/min, BP stable. Laird cath patent and intact, draining light yellow clear urine. Will complete medication rec early this shift. Call light in reach, instructed to not get out of bed without assistance. Will continue to monitor.
[2020-05-06 08:12] LABS: Base Excess Venous -10.2 mmol/L; Bicarbonate Venous 16.4 mmol/L (24.0-30.0)
[2020-05-06 15:40] LABS: Base Excess Venous -8.3 mmol/L; Bicarbonate Venous 17.7 mmol/L (24.0-30.0); PCO2 Venous 49.5 mmHg (38-42); PO2 Venous 64.1 mmHg (38-42); pH Blood Venous 7.21 (7.34-7.37)
[2020-05-06 15:59] LABS: Albumin, Blood 2.4 g/dL (3.4-5.0); Anion Gap 4 mmol/L (6-16); Blood Urea Nitrogen 36 mg/dL (8-24); Bun/Creatinine Ratio 22.2 (12.0-20.0); CO2, Blood 21 mmol/L (21-32); Calcium, Blood 7.7 mg/dL (8.5-10.1); Chloride, Blood 119 mmol/L (98-108); Creatinine, Blood 1.62 mg/dL (0.40-1.00); Glomerular Filtration Rate 35 (60-); Glucose, Blood 87 mg/dL (70-99); Potassium, Blood 5.3 mmol/L (3.5-5.5); Sodium, Blood 144 mmol/L (136-145)
--- NOTE | 2020-05-06 17:42 | NUR ---
Initial spiritual care note: Kathy appeared tired and was slow to respond. She was often repetative and would answer questions several topics later in conversation. She admits being fearful and reports chronic pain. She became tearful when talking about her frustration with adequate pain management. Kathy responded well to me and appeared more settled and calm by end of visit. She is Baptism but not active. She was appreciaitve of prayer and will benefit from continued spiritual support. I will continue to see her as case-load permits.
--- NOTE | 2020-05-06 18:29 | NUR ---
Shift Summary: No significant changes throughout shift. Patient slept for majority of shift when not stimulated by staff. Continues to appears slightly confused, but oriented to self, place, and date. Morning VBG results showed pH of 7.20, with slghtly elevated CO2. Received order at that time per Dr. Paz to place patient on BiPAP. Heylea RT set patient up on M-series BiPAP at 10/5 with 3L bleed in. VBG at 1500hr, showed slightly improvement in pH to 7.21, but a further increase in CO2. No change in neuro status noted at that time, but Heylea increased patient's BiPAP pressures to 14/6. Call then placed to Dr. Paz to report lab value and update in change in BiPAP pressures. No new orders received at that time. Unable to titrate levophed off this shift, 1-2mcg min required to keep MAP's in the 60's. Patient becoming more alert this evening, able to stay awake to eat dinner, 100%. Now back to sleeping and placed back on BiPAP mask. Central line to rt IJ patent and intact, infusing without difficulty. Call light in reach, makes needs known. Will continue to monitor until report to NOC shift RN.
--- NOTE | 2020-05-06 22:00 | NUR ---
ASSUMPTION OF CARE PT SLEEPING IN BED, TOLERATING BIPAP, O2 SATURATIONS>95%, MONITOR SHOWS SINUS RHYTHM WITH HR 60'S-70S, BP STABLE ON LEVO GTT, PLACED ON STANDBY AT APPROX 2100 (SEE FLOWSHEET FOR TITRATIONS). PT AROUSES TO VERBAL STIMULI, SWALLOWS PILLS WHOLE WITH WATER, TOLERATING ADA DIET. COURTNEY IN PLACE DRAINING CLEAR YELLOW URINE. PT UP TO BSC WITH BM, TOLERATED WELL. PT REPORTING INCREASED NECK AND BACK PAIN, SOME IMPROVEMENT WITH REPOSITIONING, PTS ALERTNESS INCREASING AND BEGAN COMPLAINING OF ANXIETY WITH BIPAP USE, DISCUSSED WITH DAVIDA VIRGEN DESIGN DRAFTSMAN, NO NEW ORDERS AT THIS TIME.
--- NOTE | 2020-05-07 | NUR ---
PT WITH INCREASED PAIN, ANXIETY AND REPORTS NAUSEA NOT RELEIVED BY ZOFRAN. PT REFUSING TO WEAR BIPAP. CALL PLACED TO DR DIAMOND, UPDATED ON PTS STATUS AND CLARIFIED ORDER FOR FENTANYL. FENTANYL FREQUENCY INCREASED AND NEW ORDER FOR REGLAN PLACED. TO PTS ROOM TO MEDICATE FOR PAIN AND NAUSEA, PT AGREES TO WEAR BIPAP AT THIS TIME.
--- NOTE | 2020-05-07 00:52 | NUR ---
PT YELLING OUT FOR NURSE, TO PTS ROOM, PT STS SHE CAN'T BREATH WITH THE BIPAP MASK ON, REPORTS SHE DOESN'T FEEL LIKE SHE NEEDS IT, EDUCATED PT ON REASON FOR USE. PT REFUSES TO WEAR BIPAP, TAKES MASK OFF AT THIS TIME.
--- NOTE | 2020-05-07 02:05 | NUR ---
PT MADE MULTIPLE REQUESTS TO HAVE COURTNEY CATHETER REMOVED, LEVO GTT OFF SINCE APPROX 2100, VITAL SIGNS STABLE, PT ALERT AND ORIENTED, COURTNEY DC'D @ 0145. READRESSED BIPAP, DISCUSSED MORNING VBG, AND HOW RESULTS OF LAB MAY INDICATE NEED FOR BIPAP. PT ADIMANT ABOUT NOT WEARING BIPAP. PT STS SHE IS OKAY WITH NASAL CANULA BUT DOES NOT WANT THE FACE MASK. RE-EDUCATED ON INDICATION OF BIPAP R/T HIGH CO2 AND HOW A NASAL CANULA WOULD BE INEFFECTIVE AT DECREASING CO2 LEVELS.
[2020-05-07 03:14] LABS: Base Excess Venous -6.5 mmol/L; Bicarbonate Venous 19.4 mmol/L (24.0-30.0); PCO2 Venous 37.2 mmHg (38-42); PO2 Venous 49.1 mmHg (38-42); pH Blood Venous 7.33 (7.34-7.37)
[2020-05-07 03:18] LABS: BASOPHILS ABSOLUTE AUTO 0.04 K/mm3 (0.00-0.23); BASOPHILS PERCENT AUTO 1 % (0-2); EOSINOPHILS ABSOLUTE AUTO 0.05 K/mm3 (0.00-0.68); EOSINOPHILS PERCENT AUTO 1 % (0-6); Hematocrit 36.1 % (33.0-51.0); Hemoglobin 11.3 g/dL (11.5-16.0); IMMATURE GRAN ABSOLUTE AUTO 0.01 K/mm3 (0.00-0.10); IMMATURE GRAN PERCENT AUTO 0 % (0-1); LYMPHOCYTES ABSOLUTE AUTO 1.07 K/mm3 (0.84-5.20); LYMPHOCYTES PERCENT AUTO 17 % (21-46); MONOCYTES PERCENT AUTO 5 % (4-13); Mean Corpuscular HGB 27.9 pg (26.0-34.0); Mean Corpuscular HGB Conc 31.3 g/dL (31.5-36.5); Mean Corpuscular Volume 89 fL (80-100); Mean Platelet Volume 11.4 fL (9.1-12.4); NEUTROPHILS ABSOLUTE AUTO 4.74 K/mm3 (1.96-9.15); NEUTROPHILS PERCENT AUTO 76 % (41-73); Platelet Count 275 K/mm3 (150-400); RDW Coefficient Variation 13.1 % (11.7-14.2); Red Blood Cell Count 4.05 M/mm3 (3.80-5.20); White Blood Cell Count 6.21 K/mm3 (4.00-11.30)
[2020-05-07 03:37] LABS: Albumin, Blood 2.7 g/dL (3.4-5.0); Anion Gap 3 mmol/L (6-16); Blood Urea Nitrogen 30 mg/dL (8-24); Bun/Creatinine Ratio 25.2 (12.0-20.0); CO2, Blood 23 mmol/L (21-32); Calcium, Blood 8.2 mg/dL (8.5-10.1); Chloride, Blood 117 mmol/L (98-108); Creatinine, Blood 1.19 mg/dL (0.40-1.00); Glomerular Filtration Rate 49 (60-); Glucose, Blood 163 mg/dL (70-99); Phosphorus, Blood 1.7 mg/dL (2.5-4.9); Potassium, Blood 5.1 mmol/L (3.5-5.5); Sodium, Blood 143 mmol/L (136-145)
--- NOTE | 2020-05-07 05:47 | NUR ---
SHIFT SUMMARY PT REMAINS AWAKE T/O NIGHT, ALERT AND ORIENTED, REFUSED BIPAP (SEE PREVIOUS NOTE) PT ON RA SINCE APPROX 0200, O2 SATURATIONS> 90%, MONITOR SHOWS SINUS RHYTHM WITH HR 70'S-80'S, BP STABLE, LEVO OFF @ 2044. PT SBA TO BSC MULTIPLE TIMES THIS SHIFT WITH FREQUENT SMALL, SOFT BUT FORMED, YELLOW TO LANDAVERDE STOOL, PT REPORTS SOME NAUSEA, MEDICATED WITH ZOFRAN AND REGLAN WITH GOOD RELEIF. SHERWIN REMOVED THIS SHIFT PER PTS REQUEST (SEE PREVIOUS NOTE) PT HAS HAD ONE VOID OF 150ml SINCE REMOVAL. PT REPORTS OF CHRONIC PAIN, NOT WELL RELEIVED WITH IV FENTANYL. THIS AM PT REPORTED 8/10 CP WITH EXERTION, CALL PLACED TO DR DIAMOND REGARDING CP AND MORNING LABS, ORDERS FOR EKG AND 20mmol SODIUM PHOS. EKG COMPLETED AND IN PTS CHART. OVERALL PT REPORTS FEELING MUCH BETTER AND IS ANXIOUS TO GET HOME TO HER TWO DOGS.
--- NOTE | 2020-05-07 07:45 | NUR ---
AM NOTE... ASSUMED CARE OF PT APROX 0700, PT IS A&Ox4 WITH CHILD LIKE BEHAVIOUR, VS ARE STABLE A THIS TIME, PT IS IN NSR IN THE 60'S-70'S WITH A STABLE BP. L/S CLEAR T/O ON RA WITH O2 SATS >92%. BT PRESENT AND HYPERACTIVE, ABD IS SOFT AND NONTENDER TO PALP. PT IS C/O OF NAUSEA DECLINING ANY MEIDCATION FOR THIS. PT HAS NONPITTING EDEMA TO HER BILAT FEET. PT IS MINIMAL/SBA TO THE TOILET TO VOID AND HAVE BMS, PT HAS BEEN HAVING FREQUENT SMALL SOFT BMS. RIGHT IJ LINE IS C/D/I. CALL LIGHT IN REACH WILL CONTINUE TO MONITOR.
--- NOTE | 2020-05-07 08:15 | NUR ---
PT UPDATE... PROVIDER AT THE BEDSIDE TALK WITH THE PT ABOUT THE PLAN OF CARE AND STAYING FOR ONE MORE DAY BEFORE D/C HOME, FIRST THE PT WAS AGREEABLE TO STAYING THEN SHE CHANGED HER MIND AND WANTS TO TO AMA. PROVIDER IN THE ROOM WHEN THE PT STATED THIS. PT WAS EDUCATED BY THE PROVIDER AND THIS RN ABOUT THE RISKS OF LEAVING AMA VS STAYING ONE MORE DAY. THE PT VERBALIZED HER UNDERSTANDING.
--- NOTE | 2020-05-07 09:55 | NUR ---
PT LEFT AMA... PT LEFT AMA AT 0950, ALL OF PT'S BELONGINGS PACKED AND SENT WITH THE PT, THE RIGHT IJ CENTRAL LINE WAS D/C'D WNL, PT'S OTHER IV WAS REMOVED WNL. PT'S BROTHER CAME AND PICKED UP THE PT. PT SIGNED AMA PAPER WORK AND WAS GIVEN A COPY. PT WAS ESCORTED OUT OF THE BUILDING VIA W/C.
== END 2020-05-07 09:45 | disposition left against medical advice (07) | DRG 871 ==
LOC: ER 18:35 → ERHOLD 21:16 → ICUE 21:16
PROVIDERS: Emergency Medicine; Family Medicine; Nurse Practitioner Acute Care; ADMIT Internal Medicine
PROC: 02HV33Z Insertion of Infusion Device into Superior Vena Cava, Percutaneous Approach (ICD-10-PCS; principal; 2020-05-06)
PROC: 5A09357 Assistance with Respiratory Ventilation, Less than 24 Consecutive Hours, Continuous Positive Airway Pressure (ICD-10-PCS; 2020-05-06)
PROC: 3E043XZ Introduction of Vasopressor into Central Vein, Percutaneous Approach (ICD-10-PCS; 2020-05-06)
DX: R57.1 Hypovolemic shock (principal); G92 Toxic encephalopathy; J96.01 Acute respiratory failure with hypoxia; N17.9 Acute kidney failure, unspecified; Z68.41 Body mass index [BMI] 40.0-44.9, adult; N39.0 Urinary tract infection, site not specified; I25.10 Atherosclerotic heart disease of native coronary artery without angina pectoris; E78.5 Hyperlipidemia, unspecified; K21.9 Gastro-esophageal reflux disease without esophagitis; M79.7 Fibromyalgia; Z96.651 Presence of right artificial knee joint; E11.22 Type 2 diabetes mellitus with diabetic chronic kidney disease; N18.3 Chronic kidney disease, stage 3 (moderate); I95.9 Hypotension, unspecified; E66.01 Morbid (severe) obesity due to excess calories; E83.39 Other disorders of phosphorus metabolism; T46.5X5A Adverse effect of other antihypertensive drugs, initial encounter; T50.2X5A Adverse effect of carbonic-anhydrase inhibitors, benzothiadiazides and other diuretics, initial encounter; Y92.9 Unspecified place or not applicable; F17.200 Nicotine dependence, unspecified, uncomplicated; Z79.4 Long term (current) use of insulin
CPT/HCPCS: 36415; 36556; 36600; 51702; 51798; 70450; 71045; 80053; 80069; 81001; 82010; 82803; 82947; 83605; 83735; 85025; 87040; 87086; 93005; 93010; 93306; 94660; 96361-59; 96365-59; 96366-59; 96367; 96375; 96375-59; 96376; 99285-25; A9270-GY; C1751; C9113; G0378; G0480; J0696; J2310; J2370; J2405; J2765; J3010; J7030; J7040; J7060

== ENCOUNTER 2020-05-18 15:10 | Emergency (ER) | payer OTHER ==
[~2020-05-18] VITALS: Ht 160 cm; Wt 102.1 kg
[2020-05-18 16:46] LABS: BASOPHILS ABSOLUTE AUTO 0.04 K/mm3 (0.00-0.23); BASOPHILS PERCENT AUTO 1 % (0-2); EOSINOPHILS ABSOLUTE AUTO 0.24 K/mm3 (0.00-0.68); EOSINOPHILS PERCENT AUTO 4 % (0-6); Hematocrit 41.4 % (33.0-51.0); Hemoglobin 12.6 g/dL (11.5-16.0); IMMATURE GRAN PERCENT AUTO 0 % (0-1); LYMPHOCYTES ABSOLUTE AUTO 2.22 K/mm3 (0.84-5.20); LYMPHOCYTES PERCENT AUTO 37 % (21-46); MONOCYTES ABSOLUTE AUTO 0.61 K/mm3 (0.16-1.47); MONOCYTES PERCENT AUTO 10 % (4-13); Mean Corpuscular HGB Conc 30.4 g/dL (31.5-36.5); Mean Corpuscular Volume 89 fL (80-100); NEUTROPHILS PERCENT AUTO 48 % (41-73); Platelet Count 264 K/mm3 (150-400); RDW Coefficient Variation 13.2 % (11.7-14.2); RDW Standard Deviation 43.2 fL (35.1-46.3); Red Blood Cell Count 4.66 M/mm3 (3.80-5.20); White Blood Cell Count 6.01 K/mm3 (4.00-11.30)
[2020-05-18] MEDS ORDERED: BUME2 PO (16:47)
[2020-05-18 17:19] LABS: Albumin, Blood 3.6 g/dL (3.4-5.0); Albumin/Globulin Ratio 0.9 (0.8-1.8); Bilirubin, Total 0.5 mg/dL (0.1-1.0); Bun/Creatinine Ratio 32.3 (12.0-20.0); Calcium, Blood 8.9 mg/dL (8.5-10.1); Creatinine, Blood 1.58 mg/dL (0.40-1.00); Globulin, Blood 4.1 g/dL (2.2-4.0); Potassium, Blood 4.9 mmol/L (3.5-5.5); Total Protein, Blood 7.7 g/dL (6.4-8.2)
== END 2020-05-18 19:45 | disposition home or self-care (01) ==
LOC: ER 15:10
PROVIDERS: Physician Assistant
DX: I95.9 Hypotension, unspecified (principal); E86.0 Dehydration; K21.9 Gastro-esophageal reflux disease without esophagitis; J45.909 Unspecified asthma, uncomplicated; F32.9 Major depressive disorder, single episode, unspecified; I25.2 Old myocardial infarction; I10 Essential (primary) hypertension; E11.9 Type 2 diabetes mellitus without complications; E78.5 Hyperlipidemia, unspecified; Z88.1 Allergy status to other antibiotic agents; Z91.018 Allergy to other foods; Z79.899 Other long term (current) drug therapy; Z79.82 Long term (current) use of aspirin; Z79.4 Long term (current) use of insulin; Z91.041 Radiographic dye allergy status; Z91.09 Other allergy status, other than to drugs and biological substances
CPT/HCPCS: 36415; 71045; 80053; 84484; 85025; 93005; 93010; 96360; 96361; 99285-25; J7030

== ENCOUNTER → 2020-10-13 | Outpatient (CLI) | payer OTHER ==
[~2020-10-13] MED LIST changes: +BUME2 PO
== END | disposition home or self-care (01) ==
LOC: LAB 14:38 → LAB SHORT 14:38
DX: L08.0 Pyoderma (principal)
CPT/HCPCS: 87070; 87077; 87147; 87186; 87205

== ENCOUNTER → 2020-11-04 | Outpatient (CLI) | payer OTHER | END | disposition home or self-care (01) | LOC: LAB SHORT 11:55 → LAB 11:55 | DX: L85.9 Epidermal thickening, unspecified (principal); L98.499 Non-pressure chronic ulcer of skin of other sites with unspecified severity | CPT/HCPCS: 88305; 88312 ==

== ENCOUNTER 2021-06-03 19:59 | Emergency (ER) | payer MEDICARE, OTHER ==
[~2021-06-03] VITALS: Ht 160 cm; Wt 138.3 kg
== END 2021-06-03 23:20 | disposition home or self-care (01) ==
LOC: ER 19:59
DX: R04.0 Epistaxis (principal); Z91.041 Radiographic dye allergy status; Z91.048 Other nonmedicinal substance allergy status; Z88.1 Allergy status to other antibiotic agents; Z88.8 Allergy status to other drugs, medicaments and biological substances; Z91.018 Allergy to other foods; Z79.899 Other long term (current) drug therapy; Z79.4 Long term (current) use of insulin; Z79.82 Long term (current) use of aspirin
CPT/HCPCS: 30901; 99284

== ENCOUNTER 2021-06-05 15:39 | Emergency (ER) | payer MEDICARE, OTHER ==
[~2021-06-05] VITALS: Ht 160 cm; Wt 138.3 kg
== END 2021-06-05 16:00 | disposition home or self-care (01) ==
LOC: ER 15:39
DX: Z48.00 Encounter for change or removal of nonsurgical wound dressing (principal); I10 Essential (primary) hypertension; E11.9 Type 2 diabetes mellitus without complications; E78.5 Hyperlipidemia, unspecified; K21.9 Gastro-esophageal reflux disease without esophagitis; J45.909 Unspecified asthma, uncomplicated; I25.2 Old myocardial infarction; Z79.899 Other long term (current) drug therapy; Z79.4 Long term (current) use of insulin; Z79.82 Long term (current) use of aspirin
CPT/HCPCS: 99282

== ENCOUNTER 2021-06-07 19:39 | Emergency (ER) | payer MEDICARE, OTHER ==
[~2021-06-07] VITALS: Ht 160 cm; Wt 138.3 kg
== END 2021-06-07 21:29 | disposition home or self-care (01) ==
LOC: ER 19:39
DX: Z48.00 Encounter for change or removal of nonsurgical wound dressing (principal); E11.9 Type 2 diabetes mellitus without complications; E78.5 Hyperlipidemia, unspecified; K21.9 Gastro-esophageal reflux disease without esophagitis; I25.2 Old myocardial infarction; I10 Essential (primary) hypertension; Z79.01 Long term (current) use of anticoagulants; Z79.899 Other long term (current) drug therapy; Z79.82 Long term (current) use of aspirin
CPT/HCPCS: 99282

== ENCOUNTER 2021-06-08 00:25 | Emergency (ER) | payer MEDICARE, OTHER ==
[~2021-06-08] VITALS: Ht 160 cm; Wt 138.3 kg
== END 2021-06-08 02:00 | disposition home or self-care (01) ==
LOC: ER 00:25
DX: R04.0 Epistaxis (principal); E11.9 Type 2 diabetes mellitus without complications; I25.10 Atherosclerotic heart disease of native coronary artery without angina pectoris; E78.5 Hyperlipidemia, unspecified; K21.9 Gastro-esophageal reflux disease without esophagitis; M79.7 Fibromyalgia; I10 Essential (primary) hypertension; I25.2 Old myocardial infarction; Z91.041 Radiographic dye allergy status; Z91.048 Other nonmedicinal substance allergy status; Z88.1 Allergy status to other antibiotic agents; Z88.8 Allergy status to other drugs, medicaments and biological substances; Z91.018 Allergy to other foods; Z79.899 Other long term (current) drug therapy; Z79.4 Long term (current) use of insulin; Z79.82 Long term (current) use of aspirin
CPT/HCPCS: 99283; A9270

== ENCOUNTER 2022-04-05 22:26 | Inpatient (IN) | payer MEDICARE, OTHER ==
[~2022-04-05] VITALS: Ht 157.5 cm; Wt 131.2 kg
[2022-04-05 23:08] LABS: BASOPHILS ABSOLUTE AUTO 0.03 K/mm3 (0.00-0.23); BASOPHILS PERCENT AUTO 0 % (0-2); EOSINOPHILS ABSOLUTE AUTO 0.07 K/mm3 (0.00-0.68); EOSINOPHILS PERCENT AUTO 1 % (0-6); Hematocrit 32.8 % (33.0-51.0); Hemoglobin 10.7 g/dL (11.5-16.0); IMMATURE GRAN ABSOLUTE AUTO 0.04 K/mm3 (0.00-0.10); IMMATURE GRAN PERCENT AUTO 0 % (0-1); LYMPHOCYTES ABSOLUTE AUTO 1.03 K/mm3 (0.84-5.20); LYMPHOCYTES PERCENT AUTO 10 % (21-46); MONOCYTES ABSOLUTE AUTO 0.74 K/mm3 (0.16-1.47); MONOCYTES PERCENT AUTO 7 % (4-13); Mean Corpuscular HGB 28.2 pg (26.0-34.0); Mean Corpuscular HGB Conc 32.6 g/dL (31.5-36.5); Mean Corpuscular Volume 87 fL (80-100); Mean Platelet Volume 11.7 fL (9.1-12.4); NEUTROPHILS ABSOLUTE AUTO 8.93 K/mm3 (1.96-9.15); NEUTROPHILS PERCENT AUTO 82 % (41-73); Platelet Count 308 K/mm3 (150-400); RDW Coefficient Variation 15.3 % (11.7-14.2); RDW Standard Deviation 48.8 fL (35.1-46.3); Red Blood Cell Count 3.79 M/mm3 (3.80-5.20); White Blood Cell Count 10.84 K/mm3 (4.00-11.30)
[2022-04-05 23:31] LABS: Albumin, Blood 3.3 g/dL (3.4-5.0); Albumin/Globulin Ratio 0.9 (0.8-1.8); Bilirubin, Total 0.7 mg/dL (0.1-1.0); Bun/Creatinine Ratio 10.2 (12.0-20.0); Calcium, Blood 8.9 mg/dL (8.5-10.1); Creatinine, Blood 1.57 mg/dL (0.40-1.00); Globulin, Blood 3.5 g/dL (2.2-4.0); Potassium, Blood 3.4 mmol/L (3.5-5.5); Total Protein, Blood 6.8 g/dL (6.4-8.2)
[2022-04-06 01:13] LABS: Base Excess Venous 1.4 mmol/L; Bicarbonate Venous 25.7 mmol/L (24.0-30.0); PCO2 Venous 36.9 mmHg (38-42); pH Blood Venous 7.45 (7.34-7.37)
[2022-04-06 02:58] LABS: Influenza A, PCR NEGATIVE (NEGATIVE); Influenza B, PCR NEGATIVE (NEGATIVE); Resp Syncytial Virus, PCR NEGATIVE (NEGATIVE); SARS-Cov-2 (COVID-19) PCR, MMC NEGATIVE (NEGATIVE)
[2022-04-06 03:45] LABS: BASOPHILS ABSOLUTE AUTO 0.02 K/mm3 (0.00-0.23); BASOPHILS PERCENT AUTO 0 % (0-2); EOSINOPHILS ABSOLUTE AUTO 0.01 K/mm3 (0.00-0.68); EOSINOPHILS PERCENT AUTO 0 % (0-6); Hematocrit 32.7 % (33.0-51.0); Hemoglobin 10.5 g/dL (11.5-16.0); IMMATURE GRAN ABSOLUTE AUTO 0.05 K/mm3 (0.00-0.10); IMMATURE GRAN PERCENT AUTO 1 % (0-1); LYMPHOCYTES ABSOLUTE AUTO 0.51 K/mm3 (0.84-5.20); LYMPHOCYTES PERCENT AUTO 5 % (21-46); MONOCYTES ABSOLUTE AUTO 0.18 K/mm3 (0.16-1.47); MONOCYTES PERCENT AUTO 2 % (4-13); Mean Corpuscular HGB 28.2 pg (26.0-34.0); Mean Corpuscular HGB Conc 32.1 g/dL (31.5-36.5); Mean Corpuscular Volume 88 fL (80-100); Mean Platelet Volume 11.8 fL (9.1-12.4); NEUTROPHILS ABSOLUTE AUTO 8.93 K/mm3 (1.96-9.15); NEUTROPHILS PERCENT AUTO 92 % (41-73); Platelet Count 276 K/mm3 (150-400); RDW Coefficient Variation 15.3 % (11.7-14.2); RDW Standard Deviation 49.3 fL (35.1-46.3); Red Blood Cell Count 3.73 M/mm3 (3.80-5.20)
[2022-04-06 04:06] LABS: Albumin, Blood 3.1 g/dL (3.4-5.0); Albumin/Globulin Ratio 0.9 (0.8-1.8); Bilirubin, Total 0.7 mg/dL (0.1-1.0); Bun/Creatinine Ratio 11.3 (12.0-20.0); Calcium, Blood 8.4 mg/dL (8.5-10.1); Creatinine, Blood 1.42 mg/dL (0.40-1.00); Globulin, Blood 3.5 g/dL (2.2-4.0); Potassium, Blood 3.6 mmol/L (3.5-5.5); Total Protein, Blood 6.6 g/dL (6.4-8.2)
--- NOTE | 2022-04-06 05:46 | NUR ---
FREIGHT RATE SPECIALIST SUMMARY PT IS ALERT AND COMMUNICATING APPROPRIATELY. PT'S BP HAS REMAINED LOW BUT STABLE THIS SHIFT W A MAP >60. TELE HAS SHOWN NSR 70'S-80'S THIS SHIFT. PTHAS BEEN AWAKE ALL NIGHT REQUESTING SNACKS AND FLUIDS. PT HAS DENIED ANY PAIN OR NAUSEA EXCEPT FOR A MINOR HEADACHE THIS SHIFT. ORTHOSTATIC BP'S WAS NEGATIVE. PT ABLE TO STAND AND TRANSFER TO [facility] W/O FEELING DIZZY. WILL REPORT TO ONCOMING RN.
[2022-04-06 09:22] LABS: Source, Urine Clean Catch
[2022-04-06 09:58] LABS: Appearance, Urine Clear (Clear); Bilirubin, Urine Neg (Neg); Blood, Urine Neg (Neg); Color, Urine Yellow (P-Yellow); Glucose Qualitative, Urine 3+ (Neg); Ketones, Urine Neg (Neg); Leukocyte Esterase, Urine Neg (Neg); Nitrite, Urine Neg (Neg); Protein, Urine 1+ (Neg); Specific Gravity, Urine 1.015 (1.003-1.022); Urobilinogen, Urine NORM (Normal)
--- NOTE | 2022-04-06 10:21 | NUR ---
Assisted up to bedside commode for the second time this morning. She was able to get up about an hour ago, without having any dizzyness/lightheadedness but states that she feels unsteady on her feet. Orthostatic vital signs were done earlier this morning, documented in the vital signs.
[2022-04-06] MEDS ORDERED: TOUJEO MAX300 UNIT/2 SC (10:58)
[2022-04-06] MEDS ORDERED: HYDMOR4 PO (11:00)
[2022-04-06] MEDS ORDERED: TRULICITY1.5 MG/0.1 SC (11:04)
[2022-04-06] MEDS ORDERED: XARELTO20 MG PO (11:05)
[2022-04-06] MEDS ORDERED: LISI20 PO (11:05)
[2022-04-06] MEDS ORDERED: ADEMPAS PO (11:06)
[2022-04-06] MEDS ORDERED: PERM5TC TOP (11:07)
[2022-04-06] MEDS ORDERED: COLCHICINE0.6 MG PO (11:08)
[2022-04-06] MEDS ORDERED: METO5 PO (11:08)
[2022-04-06] MEDS ORDERED: NOVOLOG FL100 UNIT/3 SC (11:09)
[2022-04-06] MEDS ORDERED: EFFIENT5 MG PO (11:35)
[2022-04-06] MEDS ORDERED: SOAANZ40 MG PO (11:36)
--- NOTE | 2022-04-06 11:48 | NUR ---
Call to Dr. Yan regarding CBG of 403. Humalog orders changed.
--- NOTE | 2022-04-06 13:20 | NUR ---
Pt has been following a low fat vegan diet for the past 6-7 months as recommended and prepared by her son. Pt has not been taking a B12 supplement and was told to avoid all oil, nuts, and seeds. Beans and tofu are the pts primary source of protein. Pt has had success with wt loss while on this diet, however her blood sugars have been running higher. Provided education on recommended CHO intake at meals and provided pt with diabetes friendly vegan recipes. Encouraged pt to incorporate heart healthy vegan fats in her diet such as nuts and seeds. Encouraged B12 supplement at home. Noted pt requested a non-vegan diet while in the hospital and reported high satisfaction with the meals. Pt may struggle to follow vegan diet long-term if she has a preference for incorporating some animal products, and therfore may benefit from learning healthy diet practices on a less restrictive diet.
--- NOTE | 2022-04-06 13:55 | NUR ---
Pt appears to be sleeping soundly.
--- NOTE | 2022-04-06 15:33 | NUR ---
Call to Dr. Yan regarding high CBG of 324
--- NOTE | 2022-04-06 18:44 | NUR ---
Pt states that she is feeling fine, except that her chronic back pain was not relieved by the 2 mg dilaudid dose she received, as she normally takes 4 mg at home for the post-laminectomy syndrome. Blood pressures remain stable.
[2022-04-07 04:25] LABS: Albumin, Blood 2.8 g/dL (3.4-5.0); Anion Gap 10 mmol/L (6-16); Blood Urea Nitrogen 20 mg/dL (8-24); Bun/Creatinine Ratio 18.5 (12.0-20.0); CO2, Blood 26 mmol/L (21-32); Calcium, Blood 8.3 mg/dL (8.5-10.1); Chloride, Blood 98 mmol/L (98-108); Creatinine, Blood 1.08 mg/dL (0.40-1.00); Glomerular Filtration Rate 59 (60-); Glucose, Blood 266 mg/dL (70-99); Phosphorus, Blood 3.2 mg/dL (2.5-4.9); Potassium, Blood 3.4 mmol/L (3.5-5.5); Sodium, Blood 134 mmol/L (136-145)
--- NOTE | 2022-04-07 06:28 | NUR ---
SANDWICH HAND SUMMARY PT HAS REMAINED ALERT AND COMMUNICATING APPROPRIATELY THIS SHIFT. PT'S BP WNL AND STABLE THIS SHIFT. TELE SHOWING SR 60'S-70'S THIS SHIFT. O2 SATS >92% ON 3L NC AND CPAP WHEN SHE WAS ASLEEP THIS SHIFT. PT SLEPT COMFORTABLY FOR MOST OF THE SHIFT W THE CALL LIGHT WITHIN REACH. WILL REPORT TO ONCOMING RN.
--- NOTE | 2022-04-07 08:18 | NUR ---
Lisinopril held due to low systolic blood pressure last night, 6 hours after administration of scheduled Coreg. Will check with doctor this morning regarding last night's hypotension and re-starting higher dose of lisinopril this morning. Plan to recheck pt's blood pressure again in 1 and 2 hours post coreg administration. Pt is sitting up eating breakfast right now. Given prn hydromorphone p.o. for back and shoulder pain.
--- NOTE | 2022-04-07 09:17 | NUR ---
Dr. Yan here right now, rounding on the patient.
--- NOTE | 2022-04-07 11:51 | NUR ---
Pt was ambulatory independently to the bathroom. STates that she felt like she was having some difficulty breathing and like she was going to pass out. She came back and sat on the side of the bed. I came in she was pale, mildly tachypneic and said that she felt like she was going to pass out. Blood pressure taken while sitting on side of bed was 73/52. Sinus bradycardia at 55 bpm at the time, spo2 96% on 3 l/min n,c. She was helped into bed and with HOB at 45degrees her blood pressure is now 104/70, and she says that she feels better. Color is no longer pale. No diaphoresis. STates she was just dizzy and felt like she was going to pass out earlier. She says that she feels better now.
--- NOTE | 2022-04-07 12:05 | NUR ---
Call to Dr. Yan to report pt's symptoms. Will check orthostatic blood pressures after she finishes her lunch.
--- NOTE | 2022-04-07 13:10 | NUR ---
orthostatic vital signs: Pt was sitting up in bed, comfortably, after lunch. Vital signs taken. She then sat up on side of bed, and said that she felt dizzy and short of breath. She stood up slowly. Vital signs taken, noted drop in systolic b/p from 94/63 to 69/46. She then sat down, and said that she felt a little bit better but still having some dizzyness. B/P checked, noted 83/41. She was assisted to lie down in the bed, and suddenly became panicked, flushed, and saying that she could not breathe. Helped her to sit again on the side of the bed and called cubing machine tender Gabe into help. The pt sat there and her symptoms resolved spontaneously. She then was able to lie down in the bed and HOB elevated promptly, and avoided the dyspnea which she experienced earlier. Blood pressure after lying in bed a few minutes with HOB elevated 55 degrees was improved, to systolic greater than 100. Call to Dr. Yan to report episode and new order received for 250 cc NS bolus.
--- NOTE | 2022-04-07 16:50 | NUR ---
Pt up to [facility] with stand by assistance. Made her position changes very slowly, but she still felt some lightheadedness/nausea with the activity. Systolic blood pressure difference was 16 mm Hg from lying to sitting. She was then given stand by assistance to get into the recliner chair, legs elevated. She is feeling better after she has been sitting for several minutes, but the initial activity is giving her dizzyness/lightheadedness/nausea at first. She denies any dyspnea.
--- NOTE | 2022-04-07 20:00 | NUR ---
ASSUMED CARE OF PATIENT AT APPROXIMATELY 1900 FROM KITA Roman RN. PATIENT RESTING IN RECLINER. PATIENT ALERT AND ORIENTED X4. PATIENT REPORTS CHRONIC PAIN IN LEFT SHOULDER AND BACK; REPORTS SHE WOULD LIKE TO REST UNTIL PO DILAUDID AVAILABLE AGAIN. PATIENT REPORTS CHRONIC NEUROPATHY IN FEET. PATIENT DENIES DIZZINESS AND NAUSEA. NSR ON TELE; BP SOFT; OXYGEN SATURATION ABOE 90% ON 3LPM VIA NC (BASELINE); WILL USE CPAP FOR SLEEP. PIV S/L.
[2022-04-08 04:13] LABS: BASOPHILS ABSOLUTE AUTO 0.07 K/mm3 (0.00-0.23); BASOPHILS PERCENT AUTO 1 % (0-2); EOSINOPHILS ABSOLUTE AUTO 0.15 K/mm3 (0.00-0.68); EOSINOPHILS PERCENT AUTO 2 % (0-6); Hematocrit 33.4 % (33.0-51.0); Hemoglobin 10.4 g/dL (11.5-16.0); IMMATURE GRAN ABSOLUTE AUTO 0.03 K/mm3 (0.00-0.10); IMMATURE GRAN PERCENT AUTO 0 % (0-1); LYMPHOCYTES ABSOLUTE AUTO 2.16 K/mm3 (0.84-5.20); LYMPHOCYTES PERCENT AUTO 26 % (21-46); MONOCYTES PERCENT AUTO 10 % (4-13); Mean Corpuscular HGB 27.2 pg (26.0-34.0); Mean Corpuscular HGB Conc 31.1 g/dL (31.5-36.5); Mean Corpuscular Volume 87 fL (80-100); Mean Platelet Volume 11.8 fL (9.1-12.4); NEUTROPHILS ABSOLUTE AUTO 4.99 K/mm3 (1.96-9.15); NEUTROPHILS PERCENT AUTO 61 % (41-73); Platelet Count 331 K/mm3 (150-400); RDW Coefficient Variation 15.4 % (11.7-14.2); RDW Standard Deviation 49.3 fL (35.1-46.3); Red Blood Cell Count 3.83 M/mm3 (3.80-5.20)
[2022-04-08 04:41] LABS: Albumin, Blood 3.1 g/dL (3.4-5.0); Anion Gap 7 mmol/L (6-16); Blood Urea Nitrogen 30 mg/dL (8-24); Bun/Creatinine Ratio 26.5 (12.0-20.0); CO2, Blood 28 mmol/L (21-32); Calcium, Blood 8.8 mg/dL (8.5-10.1); Chloride, Blood 100 mmol/L (98-108); Creatinine, Blood 1.13 mg/dL (0.40-1.00); Glomerular Filtration Rate 56 (60-); Glucose, Blood 57 mg/dL (70-99); Phosphorus, Blood 3.5 mg/dL (2.5-4.9); Potassium, Blood 3.4 mmol/L (3.5-5.5); Sodium, Blood 135 mmol/L (136-145)
--- NOTE | 2022-04-08 04:55 | NUR ---
AM CBG WITH LABS 57; PATIENT GIVEN ORANGE JUICE AND YAMINI CRACKER PER REQUEST
--- NOTE | 2022-04-08 05:40 | NUR ---
PATIENT SLEPT ABOUT NINE HOURS LAST NIGHT IN RECLINER WITH CPAP MASK ON. NO OTHER ACUTE CHANGES TO REPORT.
--- NOTE | 2022-04-08 05:40 | NUR ---
BLOOD SUGAR UP TO 94.
--- NOTE | 2022-04-08 19:01 | NUR ---
SHIFT SUMMARY PT A/O X4 AND COOPERATIVE OF CARE. BP'S SOFT THROUGHOUT SHIFT, MORNING BP MEDS HELD. PT GLUCOSE LEVELS STABLE IN THE 100'S, NO SHORT ACTING INSULIN COVERAGE GIVENT THIS SHIFT, ONLY THE SCHEDULED LONG ACTING. PT UP A COUPLE OF TIMES IN ROOM, LIGHTHEADEDNESS REPORTED EACH TIME, SLIGHTLY BETTER TOWARDS END OF SHIFT PER PT. NO REPORT OF CHEST PAIN/PRESSURE THROUGHOUT SHIFT. PT REPORTED SOB WHEN AMBULATING WHILE ON 3L NC. ECHO DONE TODAY.
[2022-04-09 04:36] LABS: Hematocrit 32.2 % (33.0-51.0); Hemoglobin 10.3 g/dL (11.5-16.0); Mean Corpuscular HGB 27.4 pg (26.0-34.0); Mean Corpuscular Volume 86 fL (80-100); Mean Platelet Volume 11.6 fL (9.1-12.4); Platelet Count 329 K/mm3 (150-400); RDW Coefficient Variation 15.2 % (11.7-14.2); RDW Standard Deviation 47.8 fL (35.1-46.3); Red Blood Cell Count 3.76 M/mm3 (3.80-5.20); White Blood Cell Count 6.21 K/mm3 (4.00-11.30)
[2022-04-09 04:52] LABS: Albumin, Blood 2.9 g/dL (3.4-5.0); Anion Gap 6 mmol/L (6-16); Blood Urea Nitrogen 33 mg/dL (8-24); Bun/Creatinine Ratio 28.4 (12.0-20.0); CO2, Blood 29 mmol/L (21-32); Calcium, Blood 8.7 mg/dL (8.5-10.1); Chloride, Blood 101 mmol/L (98-108); Creatinine, Blood 1.16 mg/dL (0.40-1.00); Glomerular Filtration Rate 54 (60-); Glucose, Blood 72 mg/dL (70-99); Phosphorus, Blood 4.3 mg/dL (2.5-4.9); Potassium, Blood 3.3 mmol/L (3.5-5.5); Sodium, Blood 136 mmol/L (136-145)
--- NOTE | 2022-04-09 05:31 | NUR ---
SHIFT SUMMARY ASSUMED CARE OF PT AROUND 1900. PT IS A/OX4. HEATR SOUNDS REGULAR, LUNG SOUNDS CLEAR. PT WORE 3L NC T/O THE NIGHT. OXYGEN FELL OUT OF PT NOSE WHILE SLEEPING AND PT REMAINED AT 95% OR ABOVE. PT WAS A 1P SBA TO BSC. PT HAD NO NEW COMPLAINTS; NO DIZZINESS WITH TRANSFERS.
[2022-04-09] MEDS ORDERED: MIDO5 PO (13:43)
--- NOTE | 2022-04-09 15:23 | NUR ---
DISHCARGE SUMMARY: PATIENT WAS TRANSFERRED VIA WHEEL CHAIR TRANSPORT, IV AND TELEMETRY DC'D PRIOR TO DISCHARGE. ALL DISCHARGE INSTRUCTIONS WERE UNDERSTOOD, WITH NO QUESTIONS COMMENTS OR CONCERNS. PATIENT WAS ON 3L VIA NC WHICH IS HOME O2 AMOUNT, NO SIGNS OF ACUTE DISTRESS. DENIES CHEST PAIN, OR SOB.
== END 2022-04-09 14:52 | disposition home or self-care (01) | DRG 312 ==
LOC: ER 22:26 → PCU 22:27
PROVIDERS: Emergency Medicine; Internal Medicine; Physician Assistant; Student in an Organized Health Care Education/Training Program; ADMIT Internal Medicine
DX: I95.2 Hypotension due to drugs (principal); I13.0 Hypertensive heart and chronic kidney disease with heart failure and stage 1 through stage 4 chronic kidney disease, or unspecified chronic kidney disease; I50.32 Chronic diastolic (congestive) heart failure; Z68.42 Body mass index [BMI] 45.0-49.9, adult; J96.11 Chronic respiratory failure with hypoxia; E87.1 Hypo-osmolality and hyponatremia; Z20.822 Contact with and (suspected) exposure to COVID-19; I25.10 Atherosclerotic heart disease of native coronary artery without angina pectoris; E78.00 Pure hypercholesterolemia, unspecified; K21.9 Gastro-esophageal reflux disease without esophagitis; M79.7 Fibromyalgia; F32.A Depression, unspecified; J44.9 Chronic obstructive pulmonary disease, unspecified; G89.29 Other chronic pain; N18.30 Chronic kidney disease, stage 3 unspecified; G47.33 Obstructive sleep apnea (adult) (pediatric); E78.5 Hyperlipidemia, unspecified; I50.812 Chronic right heart failure; T40.605A Adverse effect of unspecified narcotics, initial encounter; E87.6 Hypokalemia; E66.01 Morbid (severe) obesity due to excess calories; D63.1 Anemia in chronic kidney disease; T46.4X5A Adverse effect of angiotensin-converting-enzyme inhibitors, initial encounter; E11.22 Type 2 diabetes mellitus with diabetic chronic kidney disease; Z96.651 Presence of right artificial knee joint; Z86.711 Personal history of pulmonary embolism; I25.2 Old myocardial infarction; Z90.710 Acquired absence of both cervix and uterus; Z95.5 Presence of coronary angioplasty implant and graft; Z98.890 Other specified postprocedural states; Z88.8 Allergy status to other drugs, medicaments and biological substances; Z88.1 Allergy status to other antibiotic agents; Z91.018 Allergy to other foods; Z91.14 Patient's other noncompliance with medication regimen; Z79.4 Long term (current) use of insulin; Z79.82 Long term (current) use of aspirin; Z79.899 Other long term (current) drug therapy
CPT/HCPCS: 0241U; 36415; 71045; 80053; 80069; 82803; 82947; 83036; 83880; 84484; 85025; 85027; 93005; 93010; 93306; 94660; 94760; 94762; 96361; 96374; 99285-25; A9270; C9113; J1815; J2930; J7030; J7040

== ENCOUNTER 2022-07-15 03:17 | Day surgery (SDC) | payer MEDICARE, OTHER ==
[~2022-07-15 03:17] MED LIST changes: +ADEMPAS PO; +COLCHICINE0.6 MG PO; +EFFIENT5 MG PO; +HYDMOR4 PO; +METO5 PO; +MIDO5 PO; +NOVOLOG FL100 UNIT/3 SC; +PERM5TC TOP; +SOAANZ40 MG PO
== END 2022-07-15 23:29 | disposition home or self-care (01) ==
LOC: WOUND 03:17
DX: E11.622 Type 2 diabetes mellitus with other skin ulcer (principal); I87.2 Venous insufficiency (chronic) (peripheral); L97.829 Non-pressure chronic ulcer of other part of left lower leg with unspecified severity; E11.51 Type 2 diabetes mellitus with diabetic peripheral angiopathy without gangrene
CPT/HCPCS: A9270; G0463

== ENCOUNTER 2022-07-22 01:09 | Day surgery (SDC) | payer MEDICARE, OTHER | END 2022-07-22 23:12 | disposition home or self-care (01) | LOC: WOUND 01:09 | DX: Z09 Encounter for follow-up examination after completed treatment for conditions other than malignant neoplasm (principal); Z86.31 Personal history of diabetic foot ulcer; E11.51 Type 2 diabetes mellitus with diabetic peripheral angiopathy without gangrene; R60.0 Localized edema; I87.2 Venous insufficiency (chronic) (peripheral); I50.9 Heart failure, unspecified | CPT/HCPCS: G0463 ==

== ENCOUNTER 2022-09-05 08:00 | Day surgery (SDC) | payer MEDICARE, OTHER | END 2022-09-05 23:59 | disposition home or self-care (01) | LOC: WOUND 08:00 | DX: E11.622 Type 2 diabetes mellitus with other skin ulcer (principal); L97.822 Non-pressure chronic ulcer of other part of left lower leg with fat layer exposed; I73.9 Peripheral vascular disease, unspecified; I50.9 Heart failure, unspecified; I87.312 Chronic venous hypertension (idiopathic) with ulcer of left lower extremity; I87.2 Venous insufficiency (chronic) (peripheral); B95.62 Methicillin resistant Staphylococcus aureus infection as the cause of diseases classified elsewhere; E11.51 Type 2 diabetes mellitus with diabetic peripheral angiopathy without gangrene | CPT/HCPCS: A9270; G0463 ==

== ENCOUNTER 2022-09-12 01:29 | Day surgery (SDC) | payer MEDICARE, OTHER | END 2022-09-12 22:58 | disposition home or self-care (01) | LOC: WOUND 01:29 | DX: E11.622 Type 2 diabetes mellitus with other skin ulcer (principal); L97.822 Non-pressure chronic ulcer of other part of left lower leg with fat layer exposed; I87.2 Venous insufficiency (chronic) (peripheral); I87.312 Chronic venous hypertension (idiopathic) with ulcer of left lower extremity; B95.62 Methicillin resistant Staphylococcus aureus infection as the cause of diseases classified elsewhere; I89.8 Other specified noninfective disorders of lymphatic vessels and lymph nodes; E11.51 Type 2 diabetes mellitus with diabetic peripheral angiopathy without gangrene | CPT/HCPCS: A9270; G0463 ==

== ENCOUNTER 2022-09-21 00:52 | Day surgery (SDC) | payer MEDICARE, OTHER | END 2022-09-21 23:56 | disposition home or self-care (01) | LOC: WOUND 00:52 | DX: E11.622 Type 2 diabetes mellitus with other skin ulcer (principal); L97.822 Non-pressure chronic ulcer of other part of left lower leg with fat layer exposed; L89.892 Pressure ulcer of other site, stage 2; I87.312 Chronic venous hypertension (idiopathic) with ulcer of left lower extremity; I87.2 Venous insufficiency (chronic) (peripheral); R60.0 Localized edema; B95.62 Methicillin resistant Staphylococcus aureus infection as the cause of diseases classified elsewhere; E11.51 Type 2 diabetes mellitus with diabetic peripheral angiopathy without gangrene | CPT/HCPCS: A9270 ==

== ENCOUNTER 2022-10-13 01:07 | Day surgery (SDC) | payer MEDICARE, OTHER | END 2022-10-13 22:37 | disposition home or self-care (01) | LOC: WOUND 01:07 | DX: E11.622 Type 2 diabetes mellitus with other skin ulcer (principal); I87.312 Chronic venous hypertension (idiopathic) with ulcer of left lower extremity; S81.802A Unspecified open wound, left lower leg, initial encounter; I87.2 Venous insufficiency (chronic) (peripheral); I73.9 Peripheral vascular disease, unspecified; I89.8 Other specified noninfective disorders of lymphatic vessels and lymph nodes; B95.62 Methicillin resistant Staphylococcus aureus infection as the cause of diseases classified elsewhere; R60.0 Localized edema | CPT/HCPCS: 87070; 87077; 87147; 87186; 87205; A9270; G0463 ==

== ENCOUNTER 2022-10-28 02:37 | Day surgery (SDC) | payer MEDICARE, OTHER | END 2022-10-28 22:41 | disposition home or self-care (01) | LOC: WOUND 02:37 | DX: I87.2 Venous insufficiency (chronic) (peripheral) (principal); L97.822 Non-pressure chronic ulcer of other part of left lower leg with fat layer exposed; I89.0 Lymphedema, not elsewhere classified; L89.892 Pressure ulcer of other site, stage 2; I87.312 Chronic venous hypertension (idiopathic) with ulcer of left lower extremity; E11.51 Type 2 diabetes mellitus with diabetic peripheral angiopathy without gangrene; B95.62 Methicillin resistant Staphylococcus aureus infection as the cause of diseases classified elsewhere | CPT/HCPCS: G0463 ==

== ENCOUNTER 2022-11-11 01:19 | Day surgery (SDC) | payer MEDICARE, OTHER | END 2022-11-12 22:40 | disposition home or self-care (01) | LOC: WOUND 01:19 | DX: L89.892 Pressure ulcer of other site, stage 2 (principal); I87.2 Venous insufficiency (chronic) (peripheral); L97.829 Non-pressure chronic ulcer of other part of left lower leg with unspecified severity; I87.312 Chronic venous hypertension (idiopathic) with ulcer of left lower extremity; B95.62 Methicillin resistant Staphylococcus aureus infection as the cause of diseases classified elsewhere; I89.8 Other specified noninfective disorders of lymphatic vessels and lymph nodes; I50.9 Heart failure, unspecified; Z79.899 Other long term (current) drug therapy | CPT/HCPCS: G0463 ==

== ENCOUNTER 2022-12-13 00:53 | Day surgery (SDC) | payer MEDICARE, OTHER | END 2022-12-13 22:42 | disposition home or self-care (01) | LOC: WOUND 00:53 | DX: I89.0 Lymphedema, not elsewhere classified (principal) | CPT/HCPCS: G0463 ==

== ENCOUNTER 2022-12-20 02:04 | Day surgery (SDC) | payer MEDICARE, OTHER | END 2022-12-20 22:44 | disposition home or self-care (01) | LOC: WOUND 02:04 | DX: E11.622 Type 2 diabetes mellitus with other skin ulcer (principal); S81.802D Unspecified open wound, left lower leg, subsequent encounter; I87.312 Chronic venous hypertension (idiopathic) with ulcer of left lower extremity; I87.2 Venous insufficiency (chronic) (peripheral); B95.62 Methicillin resistant Staphylococcus aureus infection as the cause of diseases classified elsewhere | CPT/HCPCS: G0463 ==

== ENCOUNTER → 2023-08-21 | Outpatient (CLI) | payer MEDICARE, OTHER | LOC: LAB 12:55 → LAB SHORT 12:55 | DX: L08.0 Pyoderma (principal) | CPT/HCPCS: 87070; 87077; 87147; 87186; 87205 ==

== ENCOUNTER → 2024-12-04 | Outpatient (CLI) | payer MEDICARE, OTHER ==
[~2024-12-04] MED LIST changes: +CLOBETASOL EMOL15 G1; +DEXT40GEL PO; +ELLZIA PAK1 EACH TOP; +FARXIGA10 MG; +Flonase 0.05% N16 GM; +MECL12.5 PO; +MINOCIN100 MG PO; +MITIGARE0.6 M1 PO; +MULVITA PO; +OZEMPIC0.25 MG/02 SC; +TOBRADEX ST EYE5 M1; +ULTRAVATE TOP; +VITAMIN D310 MC4 PO
== END ==
LOC: LAB SHORT 16:19 → LAB 16:19
DX: L08.0 Pyoderma (principal)
CPT/HCPCS: 87070; 87077; 87186; 87205

== ENCOUNTER 2024-12-11 17:56 | Observation (INO) | payer MEDICARE, OTHER ==
[~2024-12-11] VITALS: Ht 160 cm; Wt 111.9 kg
[~2024-12-11 17:56] MED LIST changes: -GABA600 PO
[2024-12-11 19:46] LABS: Source, Urine Clean Catch
[2024-12-11 19:48] LABS: Appearance, Urine Hazy (Clear); Bilirubin, Urine Neg (Neg); Blood, Urine Neg (Neg); Color, Urine Yellow (P-Yellow); Glucose Qualitative, Urine 3+ (Neg); Ketones, Urine Neg (Neg); Leukocyte Esterase, Urine 2+ (Neg); Nitrite, Urine Neg (Neg); Protein, Urine Neg (Neg); Urobilinogen, Urine NORM (Normal)
[2024-12-11 19:57] LABS: Bacteria Few /hpf; Red Blood Cells, Urine Not Seen /hpf (0-2); Squamous Epithelial Cells Many /hpf (Few); White Blood Cells, Urine 0-2 /hpf (0-5)
[2024-12-11 20:06] LABS: BASOPHILS ABSOLUTE AUTO 0.08 K/mm3 (0.00-0.23); BASOPHILS PERCENT AUTO 1 % (0-2); EOSINOPHILS ABSOLUTE AUTO 0.16 K/mm3 (0.00-0.68); EOSINOPHILS PERCENT AUTO 2 % (0-6); Hematocrit 45.4 % (33.0-51.0); Hemoglobin 15.6 g/dL (11.5-16.0); IMMATURE GRAN ABSOLUTE AUTO 0.01 K/mm3 (0.00-0.10); IMMATURE GRAN PERCENT AUTO 0 % (0-1); LYMPHOCYTES ABSOLUTE AUTO 2.23 K/mm3 (0.84-5.20); LYMPHOCYTES PERCENT AUTO 31 % (21-46); MONOCYTES ABSOLUTE AUTO 0.52 K/mm3 (0.16-1.47); MONOCYTES PERCENT AUTO 7 % (4-13); Mean Corpuscular HGB 28.9 pg (26.0-34.0); Mean Corpuscular HGB Conc 34.4 g/dL (31.5-36.5); Mean Corpuscular Volume 84 fL (80-100); Mean Platelet Volume 11.7 fL (9.1-12.4); NEUTROPHILS ABSOLUTE AUTO 4.24 K/mm3 (1.96-9.15); NEUTROPHILS PERCENT AUTO 59 % (41-73); Platelet Count 241 K/mm3 (150-400); RDW Coefficient Variation 12.6 % (11.7-14.2); RDW Standard Deviation 38.5 fL (35.1-46.3); Red Blood Cell Count 5.39 M/mm3 (3.80-5.20); White Blood Cell Count 7.24 K/mm3 (4.00-11.30)
[2024-12-11 20:24] LABS: Albumin, Blood 3.9 g/dL (3.4-5.0); Albumin/Globulin Ratio 1.1 (0.8-1.8); Bilirubin, Total 0.8 mg/dL (0.1-1.0); Calcium, Blood 8.9 mg/dL (8.5-10.1); Creatinine, Blood 1.11 mg/dL (0.40-1.00); Globulin, Blood 3.6 g/dL (2.2-4.0); Magnesium, Blood 2.5 mg/dL (1.6-2.4); Phosphorus, Blood 3.5 mg/dL (2.5-4.9); Potassium, Blood 2.7 mmol/L (3.5-5.5); Total Protein, Blood 7.5 g/dL (6.4-8.2)
[2024-12-11] MEDS ORDERED: Potassium Chloride 20 MEQ TabCR PO ONE (20:55)
[2024-12-11] MEDS ORDERED: NS 1,000 ML IV SCH (20:55)
[2024-12-11] MEDS ORDERED: CefTRIAXone Sodium 1,000 MG in NS 50 ML IV ONE (21:35)
[2024-12-11] MEDS ORDERED: FLU VACC TS2024-25(6MOS UP)/PF 45 MCG/0.5 ML SYRINGE IM ONE (22:55)
[2024-12-11] MEDS ORDERED: Acetaminophen 325 MG TABLET PO PRN (23:00)
[2024-12-11] MEDS ORDERED: Carvedilol 6.25 MG Tab PO SCH (23:00)
[2024-12-11 23:58] VITALS: BP 123/69
[2024-12-12] MEDS ORDERED: Potassium Chloride 20 MEQ/15 ML UDC PO ONE ×3 (02:47→15:00)
[2024-12-12 04:35] VITALS: BP 91/59
[2024-12-12 05:23] LABS: BASOPHILS ABSOLUTE AUTO 0.08 K/mm3 (0.00-0.23); BASOPHILS PERCENT AUTO 1 % (0-2); EOSINOPHILS ABSOLUTE AUTO 0.17 K/mm3 (0.00-0.68); EOSINOPHILS PERCENT AUTO 3 % (0-6); Hematocrit 41.8 % (33.0-51.0); Hemoglobin 14.5 g/dL (11.5-16.0); IMMATURE GRAN ABSOLUTE AUTO 0.01 K/mm3 (0.00-0.10); IMMATURE GRAN PERCENT AUTO 0 % (0-1); LYMPHOCYTES ABSOLUTE AUTO 2.58 K/mm3 (0.84-5.20); LYMPHOCYTES PERCENT AUTO 41 % (21-46); MONOCYTES ABSOLUTE AUTO 0.51 K/mm3 (0.16-1.47); MONOCYTES PERCENT AUTO 8 % (4-13); Mean Corpuscular HGB 29.7 pg (26.0-34.0); Mean Corpuscular HGB Conc 34.7 g/dL (31.5-36.5); Mean Corpuscular Volume 86 fL (80-100); Mean Platelet Volume 12.1 fL (9.1-12.4); NEUTROPHILS ABSOLUTE AUTO 2.91 K/mm3 (1.96-9.15); NEUTROPHILS PERCENT AUTO 47 % (41-73); Platelet Count 209 K/mm3 (150-400); RDW Coefficient Variation 12.5 % (11.7-14.2); RDW Standard Deviation 39.3 fL (35.1-46.3); Red Blood Cell Count 4.88 M/mm3 (3.80-5.20); White Blood Cell Count 6.26 K/mm3 (4.00-11.30)
[2024-12-12 05:48] LABS: Albumin, Blood 3.1 g/dL (3.4-5.0); Albumin/Globulin Ratio 0.9 (0.8-1.8); Bilirubin, Total 0.6 mg/dL (0.1-1.0); Bun/Creatinine Ratio 30.6 (12.0-20.0); Calcium, Blood 8.6 mg/dL (8.5-10.1); Creatinine, Blood 1.21 mg/dL (0.40-1.00); Globulin, Blood 3.4 g/dL (2.2-4.0); Magnesium, Blood 2.4 mg/dL (1.6-2.4); Potassium, Blood 3.2 mmol/L (3.5-5.5); Total Protein, Blood 6.5 g/dL (6.4-8.2)
[2024-12-12] MEDS ORDERED: Pantoprazole Sodium 20 MG Tab PO SCH (06:00)
[2024-12-12 07:12] VITALS: BP 117/71
[2024-12-12] MEDS ORDERED: Insulin Human Lispro 100 Units/ML 3ML Syringe SC SCH (07:30)
[2024-12-12] MEDS ORDERED: Metolazone 2.5 MG Tab PO SCH (08:00)
[2024-12-12] MEDS ORDERED: Potassium Chloride 20 MEQ TabCR PO ONE (08:00)
[2024-12-12] MEDS ORDERED: Potassium Chloride 20 MEQ TabCR PO SCH (08:00)
[2024-12-12] MEDS ORDERED: Midodrine 2.5 MG Tab PO SCH (09:00)
[2024-12-12] MEDS ORDERED: Topiramate 25 MG Tab PO SCH (09:00)
[2024-12-12] MEDS ORDERED: ARIPiprazole 2 MG Tablet PO SCH (09:00)
[2024-12-12] MEDS ORDERED: Gabapentin 300 MG Cap PO SCH (09:00)
[2024-12-12] MEDS ORDERED: Bumetanide 1 MG Tab PO SCH (09:00)
[2024-12-12] MEDS ORDERED: Loratadine 10 MG Tab PO SCH (09:00)
[2024-12-12] MEDS ORDERED: Atorvastatin 40 MG Tab PO SCH (09:00)
[2024-12-12] MEDS ORDERED: Empagliflozin 10 MG TAB PO SCH (09:00)
[2024-12-12] MEDS ORDERED: Allopurinol 100 MG Tab PO SCH (09:00)
[2024-12-12] MEDS ORDERED: prasugrel HCL 10 MG TABLET PO SCH (09:00)
[2024-12-12] MEDS ORDERED: Rivaroxaban 10 MG Tab PO SCH (09:00)
[2024-12-12 11:42] VITALS: BP 117/71
[2024-12-12 13:39] LABS: Magnesium, Blood 2.5 mg/dL (1.6-2.4); Potassium, Blood 3.3 mmol/L (3.5-5.5)
[2024-12-12] MEDS ORDERED: ADEMPAS 2.5 MG PO SCH (14:00)
[2024-12-12] MEDS ORDERED: JARDIANCE10 MG PO (15:08)
[2024-12-12] MEDS ORDERED: SPIR25 PO (15:11)
[2024-12-12 16:01] VITALS: BP 117/73
--- NOTE | 2024-12-12 16:31 | NUR ---
Kathy (pt) is awake and in a pleasant mood. Pt admitted herself because of lower leg swelling and also discovered low potassium levels. PT is receiving necessary treatment in the form of supplements and is on a waiting list for specialized physical therapy. Pt feels deep emotions pertaining to her relationship with her two oldest sons and their reaction to adverse childhood experiences and their perception of the pt's involvement/lack of involvement. Pt feels disconnected from these two sons but is more connected with her youngest son. Pt has previously sought professional help with dealing with these matters in the form of counseling and is on a waiting list for more counseling. Provided compassionate listening and affirmed pt's decision to seek counseling. Upon entering the room, the pt was deeply concentrated on a computer game. This seems to be a potential coping mechanism. Pt also reports her "love for her children" have been the driving motivator to deal with difficult experiences. Pt was raised holiness and received spiritual care from holiness volunteers earlier today and described the experience as helpful. Pt and her son have recently obtained their own vehicle and pt hopes to visit jew more regularly. Pt verbally expressed gratitude for the conversation "I've enjoyed talking with you." Prayed with pt and she thanked me for the visit.
[2024-12-12] MEDS ORDERED: Potassium Chloride 20 MEQ/15 ML UDC PO SCH (17:00)
--- NOTE | 2024-12-12 19:10 | NUR ---
SHIFT SUMMARY PATIENT ALERT AND INTERACTIVE. PATIENT ABLE TO AMBULATE IN ROOM. PATIENT DENIES ANY PAIN. MULTIPLE DOSES OF POTASSIUM GIVEN TO CORRECT LEVELS. EDUCATION PROVIDED TO PATIENT RELATED TO DIET, FLUIDS, ELECTROLYTES, AND MEDICATIONS. PATIENT ALSO EDUCATED ON SKIN CARE AND EDEMA. PATIENT STATES SHE HAS COMPRESSION SOCKS ON ORDER ALONG WITH LEG WRAPS. DISCHARGE PAPERS REVIEWED WITH PATIENT. IV AND TELE REMOVED. BELDNGINGS AMD MEDICATIONS RETURNED TO PATIENT. PATIENT WAITING FOR RIDE.
== END 2024-12-12 19:19 | disposition home or self-care (01) ==
LOC: ER 17:56 → MEDS 17:57
PROVIDERS: Internal Medicine; Student in an Organized Health Care Education/Training Program; ADMIT Student in an Organized Health Care Education/Training Program
DX: I11.0 Hypertensive heart disease with heart failure (principal); I50.33 Acute on chronic diastolic (congestive) heart failure; E87.6 Hypokalemia; E87.1 Hypo-osmolality and hyponatremia; E11.9 Type 2 diabetes mellitus without complications; E66.01 Morbid (severe) obesity due to excess calories; E78.5 Hyperlipidemia, unspecified; R06.00 Dyspnea, unspecified; I27.20 Pulmonary hypertension, unspecified; G47.33 Obstructive sleep apnea (adult) (pediatric); Z68.42 Body mass index [BMI] 45.0-49.9, adult; I25.10 Atherosclerotic heart disease of native coronary artery without angina pectoris; Z95.5 Presence of coronary angioplasty implant and graft; Z79.01 Long term (current) use of anticoagulants; K21.9 Gastro-esophageal reflux disease without esophagitis; Z88.5 Allergy status to narcotic agent; Z88.8 Allergy status to other drugs, medicaments and biological substances; Z79.899 Other long term (current) drug therapy; Z79.4 Long term (current) use of insulin; Z87.891 Personal history of nicotine dependence
CPT/HCPCS: 36415; 80053; 81001; 82947; 83036; 83735; 83880; 84100; 84132; 85025; 87086; 93005; 93010; 93970; 96374; 99285-25; A9270; G0378; J0696; J2470; J7030

== ENCOUNTER 2025-02-05 11:38 | Day surgery (SDC) | payer MEDICARE, OTHER ==
[~2025-02-05] VITALS: Ht 157.5 cm; Wt 117.0 kg
[~2025-02-05 11:38] MED LIST changes: +JARDIANCE10 MG PO; +Lactated Ringer's 0 ML IV ONE; +SPIR25 PO
[2025-02-05] MEDS ORDERED: CeFAZolin Sodium 3,000 MG VIAL ONE (12:10)
[2025-02-05] MEDS ORDERED: CeFAZolin Sodium 2,000 MG VIAL ONE (12:23)
[2025-02-05] MEDS ORDERED: ADEMPAS2.5 MG (12:37)
[2025-02-05] MEDS ORDERED: ALBU90OI (12:37)
[2025-02-05] MEDS ORDERED: BUME2 (12:38)
[2025-02-05] MEDS ORDERED: BUPRENORPHINE HC2 MG (12:42)
[2025-02-05] MEDS ORDERED: PERIDEX15 ML (12:43)
[2025-02-05] MEDS ORDERED: VITAMIN D325 MC3 (12:44)
[2025-02-05] MEDS ORDERED: CLOBETASOL 0.0560 G1 (12:45)
[2025-02-05] MEDS ORDERED: COLCHICINE0.6 MG (12:45)
[2025-02-05] MEDS ORDERED: DEXCOM G7 RECE1 EACH (12:46)
[2025-02-05] MEDS ORDERED: DULO30 (12:46)
[2025-02-05] MEDS ORDERED: DIPH50 (12:46)
[2025-02-05] MEDS ORDERED: Diflucan150 MG (12:47)
[2025-02-05] MEDS ORDERED: LISI20 (12:49)
[2025-02-05] MEDS ORDERED: MECL12.5 (12:49)
[2025-02-05] MEDS ORDERED: MECL12.5 PO (12:52)
[2025-02-05] MEDS ORDERED: EYE ALLERGY ITCH5 ML OP (12:54)
[2025-02-05] MEDS ORDERED: TRIPLE ANTIBIO1 EAC1 TOP (12:54)
[2025-02-05] MEDS ORDERED: NYSTOP15 GM TOP (12:54)
[2025-02-05] MEDS ORDERED: ONDA4ODT MM (12:55)
[2025-02-05] MEDS ORDERED: OZEMPIC2 MG/0.75 SQ (12:56)
[2025-02-05] MEDS ORDERED: PERM5TC TOP (12:57)
[2025-02-05] MEDS ORDERED: EFFIENT10 MG PO (12:58)
[2025-02-05] MEDS ORDERED: Bupivacaine 0.5% W/EPI 1:200000 SDV 30 ML Vial ONE (13:11)
[2025-02-05] MEDS ORDERED: Lactated Ringer's 1,000 ML IV ONE (13:15)
[2025-02-05 13:16] VITALS: BP 132/80
--- NOTE | 2025-02-05 14:12 | NUR ---
02/05/25 1412 Sujata Trujillo CASE CANCELLED BY ANESTHESIA D/T PT HEALTH HX OF SEVERE PULMONARY HTN. PT IV WAS D/C'D AT 1350 AND SITE WAS WN. PT LEFT WITH HER SON IN A TAXI AT 1410.
== END 2025-02-05 14:10 | disposition home or self-care (01) ==
LOC: ORSCSDS 11:38
DX: G56.22 Lesion of ulnar nerve, left upper limb (principal); Z53.9 Procedure and treatment not carried out, unspecified reason
CPT/HCPCS: 82947; J0690; J7120

== ENCOUNTER → 2025-03-31 | Outpatient (CLI) | payer MEDICARE, OTHER ==
[~2025-03-31] MED LIST changes: +ADEMPAS2.5 MG; +ALBU90OI; +BUME2; +BUPRENORPHINE HC2 MG; +CLOBETASOL 0.0560 G1; +COLCHICINE0.6 MG; +DEXCOM G7 RECE1 EACH; +DIPH50; +DULO30; +Diflucan150 MG; +EFFIENT10 MG PO; +EYE ALLERGY ITCH5 ML OP; +LISI20; -Lactated Ringer's 0 ML IV ONE; +MECL12.5; +NYSTOP15 GM TOP; +OZEMPIC2 MG/0.75 SQ; +PERIDEX15 ML; +TRIPLE ANTIBIO1 EAC1 TOP; +VITAMIN D325 MC3
[2025-04-02 16:12] LABS: HSV 1 SUBTYPE BY PCR Not Detected; HSV 2 SUBTYPE BY PCR Not Detected
== END ==
LOC: LAB 10:52 → LAB SHORT 10:52
PROVIDERS: Dermatology
DX: L08.0 Pyoderma (principal)
CPT/HCPCS: 87070; 87205; 87529